=== PATIENT | male | born 1955 | race Caucasian/White ===

== ENCOUNTER 2017-01-01 10:42 | Emergency (ER) | payer BC ==
[~2017-01-01] VITALS: Ht 172.7 cm; Wt 76.6 kg
[~2017-01-01 10:42] MED LIST: ALBU1AER9 INH; ALLO300T2 PO; ATOR10TA88 PO; CLL250 PO; ESOM40GR PO; FEXO1TAB45 PO; FLUT50SP14 NAE; LISI-729 PO; MAGNESIUM SALICYLATE PO; MULTTAB58 PO; RAPAMUNE PO; TRAZ1TAB16 PO
[2017-01-01 10:53] VITALS: Ht 172.7 cm; Wt 76.6 kg
[2017-01-01 12:02] VITALS: TEMP 37.3
[2017-01-01 12:05] LABS: BASO % 0.1 %; BASO ABS # 0.01 K/uL (0-0.2); COMPLETE YES; EOS % 0.1 %; HEMATOCRIT 42.8 % (42-52); IG% 0.3 %; LYMPH % 5.8 %; LYMPH ABS # 1.02 K/uL (1.2-3.4); MEAN CELL VOLUME 81.8 fL (80-100); MEAN CORPUSCULAR HEMOGLOBIN 28.5 pg (25-34); MEAN CORPUSCULAR HGB CONC 34.8 g/dl (32-36); MEAN PLATELET VOLUME 9.6 fL (7.4-10.4); MONO % 2.2 %; NEUT % 91.5 %; PLATELET COUNT 270 K/uL (130-400); RED BLOOD COUNT 5.23 M/uL (4.7-6.1); WHITE BLOOD COUNT 17.67 K/uL (4.8-10.8)
[2017-01-01] MEDS ORDERED: MoRPHine SULFATE 4 MG/ML 1 ML CARP\\VIAL IV STA ×2 (12:09→15:33)
[2017-01-01] MEDS ORDERED: PIPERACILLIN/TAZOBACTAM 4.5 GM/100ML D5W IV STA ×2 (12:09→19:13)
[2017-01-01] MEDS ORDERED: ONDANSETRON INJ 2 MG/ML 2 ML VIAL IV STA (12:09)
[2017-01-01 12:27] LABS: ALB/GLOB RATIO 0.9 (0.9-2); BUN/CREATININE RATIO 18.8 (10-20); CALCIUM 9.6 mg/dl (8.5-10.1); CREATININE 1.9 mg/dl (0.60-1.40); POTASSIUM 3.6 mmol/L (3.5-5.1)
[2017-01-01] MEDS ORDERED: [UNRECOGNIZED DRUG - CODE] PO (12:50)
[2017-01-01] MEDS ORDERED: ALBU18002 INH (12:50)
[2017-01-01] MEDS ORDERED: SIRO1TAB PO (12:50)
[2017-01-01] MEDS ORDERED: MYCO500T4 PO (12:50)
[2017-01-01] MEDS ORDERED: FLUT0.15 NAE (12:50)
[2017-01-01] MEDS ORDERED: NXM/40 PO (12:50)
[2017-01-01] MEDS ORDERED: SODIUM CHLORIDE 0.9% 1000ML 1,000 ML IV STA (12:59)
--- NOTE | 2017-01-01 14:37 | DIAGNOSTIC IMAGING REPORT ---
Right upper quadrant ultrasound GALLBLADDER-ABD LIMITED CLINICAL HISTORY: eval for biliary obstruction pain. Nausea. TECHNIQUE: Ultrasound COMPARISON STUDY: 02/02/2016 FINDINGS: Prior cholecystectomy. Liver is uniform. Common bile duct 4 mm. Pancreas is unremarkable within limitations of overlying bowel content. Right kidney is negative for hydronephrosis. IMPRESSION: Negative study status post cholecystectomy. HISTORY: Of prior liver transplant. Electronically signed by: Adolfo Galvez M.D. 01/01/2017 2:36 PM Dictated Date/Time: 01/01/2017 2:33 PM
[2017-01-01] MEDS ORDERED: ONDANSETRON INJ 2 MG/ML 2 ML VIAL ONE (15:47)
[2017-01-01 16:07] LABS: URINE APPEARANCE CLEAR (CLEAR); URINE COLOR DK YELLOW; URINE NITRITE NEG (NEG); URINE SPECIFIC GRAVITY 1.021 (1.000-1.030); UROBILINOGEN NEG (NEG); ZZUR CULT IF INDIC CLEAN CATCH NO
[2017-01-01 16:10] LABS: MANUAL MICROSCOPIC REQUIRED? NO; REVIEW REQ? NO
[2017-01-01 16:11] LABS: URINE BILIRUBIN NEG (NEG)
[2017-01-01 19:02] VITALS: BP 139/83; PULSE 100; O2SAT 95
--- NOTE | 2017-01-01 19:25 | EMERGENCY ROOM VISIT NOTE ---
History Report prepared by Blake: Paul Cota Under the Supervision of: Dr. Jhon Wilkes M.D. First contact with patient: 12:02 Chief Complaint: ABDOMINAL PAIN Stated Complaint: VOMITING, STOMACH PAIN Nursing Triage Summary: pt reports abd pain vomiting has hx of liver transplant believes he has blocked bile duct. in [facility] History of Present Illness The patient is a 61 year old male with a history of liver transplant in 2004 who presents to the Emergency Room with complaints of persistent abdominal pain that started earlier today. He states that he had a liver transplant due to hepatitis C, which has been resolved. The patient says that his donor site bile duct is smaller than his own, and because of this, he occasionally gets biliary obstruction where he spikes a fever, gets nauseous, and vomits. He also gets aching right upper quadrant abdominal pain. He says that today, he is having the classic symptoms, and in the past, has been transferred to [facility] for a biliary stent procedure. The patient adds that his color is not changing. He denies any diarrhea, but he has not had much of a bowel movement today. The patient says that he has not urinated much today, but his urine has been of normal color. Source of History: patient Onset: Earlier today Position: abdomen (RUQ) Quality: ache Timing: other (persistent) Associated Symptoms: + fevers, + nausea, + vomiting, No diarrhea Note: Associated symptoms: Decreased urinary frequency today. Denies change in color. Review of Systems See HPI for pertinent positives & negatives. A total of 10 systems reviewed and were otherwise negative. Past Medical & Surgical Medical Problems: (1) Bronchitis (2) Diabetes (3) HTN (hypertension) (4) Kidney disease (5) PNA (pneumonia) Surgical Problems: (1) Liver replaced by transplant Family History Cancer Diabetes mellitus Heart disease Hypertension Lung disease Social History Smoking Status: Never Smoker Smokeless Tobacco Use: No Alcohol Use: occasionally Marital Status: Housing Status: lives with family Current/Historical Medications Scheduled Allopurinol (Zyloprim), 300 MG PO DAILY Atorvastatin (Lipitor), 10 MG PO DAILY Esomeprazole Magnesium (Nexium), 40 MG PO BID Fluticasone Propionate (Nasal) (Flonase Allergy Relief), 2 SPRAYS GILMA DAILY Lisinopril (Zestril), 5 MG PO DAILY Magnesium Salicylate (Cvs Backache Relief), 500 MG PO DAILY Multiple Vitamin (Multivitamin), 1 TAB PO DAILY Mycophenolate Mofetil (Cellcept), 500 MG PO BID Sirolimus (Rapamune), 1 MG PO DAILY Trazodone Hcl (Desyrel), 50 MG PO HS PRN Scheduled PRN Albuterol Sulfate (Proair Respiclick), 2 PUFFS INH Q4 PRN for SOB/Wheezing Allergies Coded Allergies: Diphenhydramine (Verified Adverse Reaction, Intermediate, restless, ) Benzyl Alcohol (Verified Adverse Reaction, Unknown, ANXIETY, 06/30/15) Prochlorperazine (Verified Adverse Reaction, Unknown, ANXIETY, 06/30/15) Saccharin (Verified Adverse Reaction, Unknown, ANXIETY, 06/30/15) Physical Exam Vital Signs Date Time Temp Pulse Resp B/P (MAP) Pulse Ox O2 Delivery O2 Flow Rate FiO2 01/01/17 19:02 100 18 139/83 95 Room Air 01/01/17 17:10 122/71 01/01/17 15:01 115 20 122/82 93 Room Air 01/01/17 12:42 109 25 01/01/17 12:14 128 01/01/17 12:12 125 18 01/01/17 12:02 37.3 122 140/90 93 Room Air 01/01/17 12:00 140/90 01/01/17 10:53 38.1 133 24 141/105 94 Room Air Physical Exam Constitutional: Vital signs reviewed. Eyes: Sclera are icteric. Pupils are equal, round and reactive to light. ENT: Pharynx is clear without erythema or exudate. Mucous membranes are moist. Neck supple without meningeal signs. Respiratory: Clear to auscultation bilaterally. Breath sounds are equal bilaterally. Cardiovascular: Regular rate and rhythm. No rubs or gallops. GI: Right upper quadrant tenderness. No guarding or Medina's sign. Bowel sounds are present. Musculoskeletal: No peripheral edema. No lower extremity tenderness. Integumentary: No cyanosis. Neurological: The patient is awake and alert. No focal deficits. Psychiatric: Normal affect. Medical Decision & Procedures ER Provider Diagnostic Interpretation: US results as stated below per my review and radiologist interpretation. Right upper quadrant ultrasound GALLBLADDER-ABD LIMITED CLINICAL HISTORY: eval for biliary obstruction pain. Nausea. TECHNIQUE: Ultrasound COMPARISON STUDY: 02/02/2016 FINDINGS: Prior cholecystectomy. Liver is uniform. Common bile duct 4 mm. Pancreas is unremarkable within limitations of overlying bowel content. Right kidney is negative for hydronephrosis. IMPRESSION: Negative study status post cholecystectomy. HISTORY: Of prior liver transplant. Electronically signed by: Adolfo Galvez M.D. 01/01/2017 2:36 PM Dictated Date/Time: 01/01/2017 2:33 PM Laboratory Results 01/01/17 11:20 Red Blood Count 5.23, Mean Corpuscular Volume 81.8, Mean Corpuscular Hemoglobin 28.5, Mean Corpuscular Hemoglobin Concent 34.8, Mean Platelet Volume 9.6, Neutrophils (%) (Auto) 91.5, Lymphocytes (%) (Auto) 5.8, Monocytes (%) (Auto) 2.2, Eosinophils (%) (Auto) 0.1, Basophils (%) (Auto) 0.1, Neutrophils # (Auto) 16.18, Lymphocytes # (Auto) 1.02, Monocytes # (Auto) 0.39, Eosinophils # (Auto) 0.01, Basophils # (Auto) 0.01 01/01/17 11:20 Test 01/01/17 11:20 01/01/17 15:30 White Blood Count 17.67 K/uL (4.8-10.8) Red Blood Count 5.23 M/uL (4.7-6.1) Hemoglobin 14.9 g/dL (14.0-18.0) Hematocrit 42.8 % (42-52) Mean Corpuscular Volume 81.8 fL (80-100) Mean Corpuscular Hemoglobin 28.5 pg (25-34) Mean Corpuscular Hemoglobin Concent 34.8 g/dl (32-36) Platelet Count 270 K/uL (130-400) Mean Platelet Volume 9.6 fL (7.4-10.4) Neutrophils (%) (Auto) 91.5 % Lymphocytes (%) (Auto) 5.8 % Monocytes (%) (Auto) 2.2 % Eosinophils (%) (Auto) 0.1 % Basophils (%) (Auto) 0.1 % Neutrophils # (Auto) 16.18 K/uL (1.4-6.5) Lymphocytes # (Auto) 1.02 K/uL (1.2-3.4) Monocytes # (Auto) 0.39 K/uL (0.11-0.59) Eosinophils # (Auto) 0.01 K/uL (0-0.5) Basophils # (Auto) 0.01 K/uL (0-0.2) RDW Standard Deviation 44.2 fL (36.4-46.3) RDW Coefficient of Variation 14.8 % (11.5-14.5) Immature Granulocyte % (Auto) 0.3 % Immature Granulocyte # (Auto) 0.06 K/uL (0.00-0.02) Anion Gap 11.0 mmol/L (3-11) Est Creatinine Clear Calc Drug Dose 39.0 ml/min Estimated GFR () 42.8 Estimated GFR (Non- 37.0 BUN/Creatinine Ratio 18.8 (10-20) Calcium Level 9.6 mg/dl (8.5-10.1) Total Bilirubin 2.1 mg/dl (0.2-1) Aspartate Amino Transf (AST/SGOT) 1228 U/L (15-37) Alanine Aminotransferase (ALT/SGPT) 519 U/L (12-78) Alkaline Phosphatase 503 U/L (45-117) Total Protein 7.8 gm/dl (6.4-8.2) Albumin 3.6 gm/dl (3.4-5.0) Globulin 4.2 gm/dl (2.5-4.0) Albumin/Globulin Ratio 0.9 (0.9-2) Lipase 168 U/L (73-393) Urine Color DK YELLOW Urine Appearance CLEAR (CLEAR) Urine pH 5.0 (4.5-7.5) Urine Specific [place] 1.021 (1.000-1.030) Urine Protein 3+ (NEG) Urine Glucose (UA) NEG (NEG) Urine Ketones NEG (NEG) Urine Occult Blood 2+ (NEG) Urine Nitrite NEG (NEG) Urine Bilirubin NEG (NEG) Urine Urobilinogen NEG (NEG) Urine Leukocyte Esterase NEG (NEG) Urine WBC (Auto) 1-5 /hpf (0-5) Urine RBC (Auto) 5-10 /hpf (0-4) Urine Hyaline Casts (Auto) 1-5 /lpf (0-5) Urine Epithelial Cells (Auto) 10-20 /lpf (0-5) Urine Bacteria (Auto) NEG (NEG) Laboratory results as reviewed by me. Medications Administered Medications (Trade) Dose Ordered Sig/Anders Route Start Time Stop Time Status Last Admin Dose Admin Piperacillin Sod/ Tazobactam Sod (Zosyn Iv) 4.5 gm NOW STAT IV 01/01/17 12:09 01/01/17 12:12 DC 01/01/17 12:34 4.5 GM Ondansetron HCl (Zofran Inj) 4 mg NOW STAT IV 01/01/17 12:09 01/01/17 12:12 DC 01/01/17 12:31 4 MG Morphine Sulfate (MoRPHine SULFATE INJ) 4 mg NOW STAT IV 01/01/17 12:09 01/01/17 12:12 DC 01/01/17 12:32 4 MG Sodium Chloride 1,000 ml @ 999 mls/hr Q1H1M STAT IV 01/01/17 12:59 01/01/17 13:59 DC 01/01/17 13:27 999 MLS/HR Morphine Sulfate (MoRPHine SULFATE INJ) 4 mg NOW STAT IV 01/01/17 15:33 01/01/17 15:34 DC 01/01/17 15:37 4 MG Ondansetron HCl (Zofran Inj) 4 mg STK-MED ONCE .ROUTE 01/01/17 15:47 01/01/17 15:48 DC 01/01/17 15:50 4 MG ED Course 1204: The patient was evaluated in room B10. A complete history and physical exam was performed. 1209: Ordered Morphine Sulfate Inj 4 mg IV, Zofran Inj 4 mg IV, Zosyn IV 4.5 gm IV. 1219: I reevaluated and updated the patient. 1240: I reevaluated the patient and he is resting. The patient verbally expressed understanding and agreement of the treatment plan. The patient will be transferred to [facility]. 1257: I discussed the patient with Dr. Delvalle - hospitalist at [facility] - she has accepted the patient for transfer. The transfer center says that it will be up to an hour before getting a bed, so I will go ahead and do some imaging. 1259: Ordered NSS 1000 ml @ 999 mls/hr IV. 1313: I reevaluated and updated the patient. 1510: I reevaluated the patent and discussed the test results with him. He says he is feeling better. 1517: I discussed the patient with Lillie Velasquez - [facility] - she says it probably would be best to still transfer the patient due to his transplant and problems with biliary obstruction. 1533: Ordered Morphine Sulfate Inj 4 mg IV. 1608: There is still no bed available. The secretary administrative assistant will call again to see if we can get a bed for the patient. 1613: A bed has now become available. Medical Decision This is a 61-year-old male who presents with abdominal pain, fever and vomiting. Differential diagnosis includes cholangitis, choledocholithiasis, biliary obstruction, rejection, sepsis. I did perform a limited focused review of portions of the patient's old chart on the electronic medical record. The patient has had no recent pertinent visits to this hospital. Blood Pressure Screening: Patient was found to have an elevated blood pressure and was referred to their primary doctor for recheck and further treatment. Medication Reconciliation: I attest that I have personally reviewed the patient' s current medication list. I did evaluate the patient as noted above. The patient is presenting with symptoms he says is consistent with biliary obstruction. He does have scleral icterus. He is febrile and vomiting. He states this is exactly what happens when he develops biliary obstruction and needs a stent placed at [facility]. He does have a history of liver transplant and is on immunosuppressants. IV access was established. I did order and personally review the patient's urinalysis as described above. I did order and review the patient's blood work as noted in the electronic medical record. His white blood cell count is significant elevated. LFTs are abnormal as well. I did discuss the test results with the patient. I did treat him with IV morphine and Zofran. He was given normal saline IV and Zosyn IV after cultures were drawn. After discussion with the patient I did arrange for transfer to [facility]. I did talk to the hospitalist who accepted the transfer. There was some delay in getting a bed and so I did order an ultrasound of the right upper quadrant. I did review the images myself as well as the radiology report as described above. There is no evidence of biliary obstruction on ultrasound. I did reassess the patient. He is feeling better. There is still some delay in finding a bed and so I did discuss the case with the gastroenterology service here. They still recommended that he be transferred given his history of liver transplantation and should he need biliary stenting. Eventually the patient was able to get a bed and ambulance transfer was arranged. Because he was here for a prolonged period time I did give him another dose of Zosyn IV. He was also given additional morphine and Zofran. He was transferred in stable condition. Consults Time Called: 1250 Consulting Physician: Dr. Adelia hyman at [facility] Returned Call: [phone] I discussed the patient with Dr. Adelia hyman at [facility] - she has accepted the patient for transfer. The transfer center says that it will be up to an hour before getting a bed, so I will go ahead and do some imaging. Additional Consults: Time Called: 1510 Consulted Physician: [facility] Returned Call: [phone] Additional Comments: I discussed the patient with [facility] - she says it probably would be best to still transfer the patient due to his transplant and problems with biliary obstruction. Impression Primary Impression: Right upper quadrant abdominal pain Additional Impressions: History of liver transplant Fever Abnormal LFTs Scribe Attestation The scribe's documentation has been prepared under my direct and personally reviewed by me in its entirety. I confirm that the note above accurately reflects all work, treatment, procedures, and medical decision making performed by me. Departure Information Dispostion Transfer Acute Care Facility (to [facility]) Referrals Terrie Mckinney M.D. (PCP) Patient Instructions My [facility] Problem Qualifiers Additional Impressions: Fever Fever type: unspecified Qualified Codes: R50.9 - Fever, unspecified
== END 2017-01-01 19:15 | disposition short-term general hospital (02) ==
LOC: C.EDB 10:44
DX: R10.11 Right upper quadrant pain (principal); Z94.4 Liver transplant status; R50.9 Fever, unspecified; R94.5 Abnormal results of liver function studies; E11.9 Type 2 diabetes mellitus without complications; I10 Essential (primary) hypertension; N28.9 Disorder of kidney and ureter, unspecified; R17 Unspecified jaundice; Z83.3 Family history of diabetes mellitus; Z82.49 Family history of ischemic heart disease and other diseases of the circulatory system

== ENCOUNTER → 2017-08-07 | Outpatient (CLI) | payer BC ==
[~2017-08-07] MED LIST changes: +ALBU18002 INH; -ALBU1AER9 INH; +ATOR10TA82 PO; -ATOR10TA88 PO; -CLL250 PO; -ESOM40GR PO; -FEXO1TAB45 PO; +FLUT0.15 NAE; -FLUT50SP14 NAE; -MAGNESIUM SALICYLATE PO; +MYCO500T4 PO; +NXM/40 PO; -RAPAMUNE PO; +SIRO1TAB PO; +TRAZ-119 PO; -TRAZ1TAB16 PO; +[UNRECOGNIZED DRUG - CODE] PO
== END | disposition home or self-care (01) ==
LOC: C.RDSM 14:57
PROVIDERS: ATTEND Family Medicine Sports Medicine
DX: M25.572 Pain in left ankle and joints of left foot (principal)

== ENCOUNTER → 2018-01-16 | Outpatient (CLI) | payer BC ==
[~2018-01-16] MED LIST changes: +ATOR-24 PO; -ATOR10TA82 PO; +DESI25TA PO; +FEXO1TAB49 PO; -FLUT0.15 NAE; -LISI-729 PO; +LISI5TAB PO; +MAGN500C PO; +MOME6000 NAE; -MULTTAB58 PO; +PSEU60TA80 PO; -TRAZ-119 PO; +TRAZ1TAB96 PO; -[UNRECOGNIZED DRUG - CODE] PO
--- NOTE | 2018-01-16 09:04 | DIAGNOSTIC IMAGING REPORT ---
CHEST 2 VIEWS ROUTINE HISTORY: 62 years-old Male pat preoperative exam. No acute chest complaints COMPARISON: Chest radiograph 01/14/2013 TECHNIQUE: PA and lateral views of the chest FINDINGS: Cardiomediastinal and hilar silhouettes are within normal limits. Surgical clips project about the left hemidiaphragm with surgical coils noted about the midline retrocardiac region. Neurostimulator leads extending superiorly about the right paraspinal distribution extending outside the [id number]. No pneumothorax, pleural effusion, focal airspace consolidation or overt pulmonary edema. Degenerative changes of the shoulders and spine. Surgical clips also project of the left axillary distribution. IMPRESSION: No acute process. The above report was generated using voice recognition software. It may contain grammatical, syntax or spelling errors. Electronically signed by: Kristian Erickson M.D. 01/16/2018 9:02 AM Dictated Date/Time: 01/16/2018 9:01 AM
[2018-01-16 09:05] LABS: PTT PATIENT 25.2 SECONDS (21.0-31.0)
[2018-01-16 09:06] LABS: BLOOD UREA NITROGEN 43 mg/dl (7-18); CALCIUM 9.2 mg/dl (8.5-10.1); CARBON DIOXIDE 28 mmol/L (21-32); CREATININE 2.02 mg/dl (0.60-1.40); GLUCOSE 238 mg/dl (70-99); POTASSIUM 4.3 mmol/L (3.5-5.1); SODIUM 138 mmol/L (136-145)
[2018-01-16 09:09] LABS: BASO % 0.1 %; BASO ABS # 0.01 K/uL (0-0.2); EOS % 3.5 %; EOS ABS # 0.25 K/uL (0-0.5); HEMATOCRIT 37.8 % (42-52); HEMOGLOBIN 12.3 g/dL (14.0-18.0); IG# 0.01 K/uL (0.00-0.02); LYMPH % 19.9 %; LYMPH ABS # 1.41 K/uL (1.2-3.4); MEAN CORPUSCULAR HEMOGLOBIN 27.3 pg (25-34); MEAN CORPUSCULAR HGB CONC 32.5 g/dl (32-36); MEAN PLATELET VOLUME 10.1 fL (7.4-10.4); MONO % 4.9 %; MONO ABS # 0.35 K/uL (0.11-0.59); NEUT % 71.5 %; NEUT ABS # 5.06 K/uL (1.4-6.5); PLATELET COUNT 237 K/uL (130-400); RED CELL DISTRIBUTION WIDTH CV 14.9 % (11.5-14.5); RED CELL DISTRIBUTION WIDTH SD 45.2 fL (36.4-46.3); WHITE BLOOD COUNT 7.09 K/uL (4.8-10.8)
== END | disposition home or self-care (01) ==
LOC: C.CPL 07:56
PROVIDERS: ATTEND Orthopaedic Surgery Orthopaedic Surgery of the Spine
DX: Z01.818 Encounter for other preprocedural examination (principal)

== ENCOUNTER 2019-05-07 05:42 | Inpatient (IN) ==
[2019-05-07] MEDS ORDERED: ASPIRIN CHEW 324 MG PO STA (05:57)
[2019-05-07] MEDS: NITROGLYCERIN SL 0.4 MG/TAB TAB SL PRN ×2 (06:07→06:21)
[2019-05-07] MEDS ORDERED: ONDANSETRON INJ 2 MG/ML 2 ML VIAL ONE (06:16)
--- NOTE | 2019-05-07 06:16 | XRay Report ---
XR chest 1V portable CLINICAL HISTORY: Chest Pain dyspnea COMPARISON STUDY: 01/14/2013 FINDINGS: Mild cardiomegaly. Prominent pulmonary vasculature. Diaphragms are smooth. There are no foc al consolidative infiltrates. IMPRESSION: Findings of early and/or developing pulmonary edema versus diffuse bilateral parenchymal infiltrative change. The above report was generated using voice recognition software. It may contain grammatical, syntax or spelling errors. Electronically signed by: Adolfo Galvez M.D. 05/07/2019 6:14 AM
[2019-05-07 06:28] LABS: Basophils # (auto) 0.01 K/uL (0-0.2); Basophils % (auto) 0.1 %; Eosinophils # (auto) 0.18 K/uL (0-0.5); Eosinophils % (auto) 1.3 %; Hematocrit (blood only) 39.2 % (42-52); Hemoglobin 13.1 g/dL (14.0-18.0); Immature Granulocytes # (auto) 0.03 K/uL (0.00-0.02); Immature Granulocytes % (auto) 0.2 %; Lymphocytes # (auto) 1.95 K/uL (1.2-3.4); Lymphocytes % (auto) 14.3 %; Mean Corpuscular Hemoglobin 27.5 pg (25-34); Mean Corpuscular Hgb Conc 33.4 g/dL (32-36); Mean Corpuscular Volume 82.4 fL (80-100); Mean Platelet Volume 9.4 fL (7.4-10.4); Monocytes # (auto) 1.05 K/uL (0.11-0.59); Monocytes % (auto) 7.7 %; Neutrophils # (auto) 10.42 K/uL (1.4-6.5); Neutrophils % (auto) 76.4 %; Platelet Count 342 K/uL (130-400); RDW Coefficient of Variation 14.6 % (11.5-14.5); RDW Standard Deviation 43.8 fL (36.4-46.3); Red Blood Count 4.76 M/uL (4.7-6.1); White Blood Count 13.64 K/uL (4.8-10.8)
[2019-05-07 06:34] LABS: Albumin Level 3.2 gm/dl (3.4-5.0); BUN Creatinine Ratio 15.3 (10-20); Creatinine Clr Calc Pharmacy 32.8 ml/min; Est GFR (African American) 35.7; Est GFR (Non-African American) 30.8; Potassium 3.2 mmol/L (3.5-5.1)
[2019-05-07 06:43] LABS: Albumin Globulin Ratio 0.7 (0.9-2); Bilirubin,Total 0.6 mg/dl (0.2-1); Globulin 4.4 gm/dl (2.5-4.0); Total Protein 7.6 gm/dl (6.4-8.2); Troponin I 0.088 ng/ml (0-0.045)
[2019-05-07] MEDS ORDERED: MoRPHine SULFATE 2 MG/ML CARP IV STA ×2 (06:44→06:59)
[2019-05-07] MEDS ORDERED: HEPARIN SODIUM/DEXTROSE 25,000 UNITS/500 ML BAG IV SCH (07:00)
[2019-05-07] MEDS ORDERED: HEPARIN SOD 5,000 UNIT/0.5 ML VIAL ONE (07:04)
[2019-05-07 07:11] LABS: Prothrombin Time 10.2 Seconds (9.0-12.0)
--- NOTE | 2019-05-07 07:22 | Emergency Department Note ---
Entered by Gertrudis Martinez acting as a scribe for History of Present Illness General Chief complaint: Chest Pain Stated complaint: CHEST PAIN,SHORTNESS OF BREATH Time Seen by Provider: 05/07/19 05:45 Source: patient History of Present Illness Onset (ago): hour(s) (2.5) Location: chest (substernal) Radiation: non-radiation Pain Consistency: + other (persistent ) Current Pain Intensity: 7 Quality: + other ("pulsing") Associated symptoms: + shortness of breath; no diaphoresis and no nausea/vomitin g The patient is a 64 year old male who presents to the Emergency Room with comp laints of persistent substernal chest pain that began at 0330, approximately 2.5 hours prior to arrival. He states that he woke up from this pain. The patient describes his pain as a "pulsing" and rates it at a 7/10. The patient denies radiation of his pain. He reports shortness of breath with this "pulsing". The patient denies nausea, vomiting, and sweating. The patient states that he has a history of two liver transplants, hypertension, and diabetes. The patient states that his most recent liver transplant was in 2004. He states that he is set to have an aortic ultrasound tomorrow. Home Medications Home Medications Medication Instructions Recorded Confirmed Type allopurinol 300 mg PO QPM #0 tab 02/27/12 05/07/19 History trazodone 100 mg PO HS #0 tab 02/27/12 05/07/19 History albuterol sulfate 2 puff INHALATION Q4 PRN #0 01/01/17 05/07/19 History sirolimus 1 mg PO QPM #0 01/01/17 05/07/19 History atorvastatin 40 mg PO QPM #0 tab 01/09/18 05/07/19 History desipramine 25 mg PO QPM #0 01/09/18 05/07/19 History esomeprazole magnesium [Nexium] 40 mg PO BID #0 cap 01/09/18 05/07/19 History fexofenadine 180 mg PO DAILY PRN #0 tab 01/09/18 05/07/19 History mometasone 1 spray INTRANASAL DAILY PRN #0 01/09/18 05/07/19 History mycophenolate mofetil 500 mg PO QPM #0 tab 01/09/18 05/07/19 History pseudoephedrine-guaifenesin 1 tab PO Q12H PRN #0 tab 01/09/18 05/07/19 History magnesium salicylate 580 mg PO QPM 05/07/19 05/07/19 History Allergies Allergy/AdvReac Type Severity Reaction Status Date / Time ketamine Allergy Intermediate hallucinati Verified 05/07/19 06:04 ons midazolam Allergy Intermediate headaches/ Verified 05/07/19 06:04 "hangover" diphenhydramine AdvReac Intermediate restless Verified 05/07/19 06:04 prochlorperazine AdvReac Intermediate ANXIETY Verified 05/07/19 06:04 Past Med/Surg History Medical History Diabetes (Chronic) HTN (hypertension) (Chronic) Kidney disease (Chronic) Arm pain HAS DORSAL [employer]ULATOR FOR PAIN CONTROL 2007 Arthritis Femur fracture, left REPAIRED GERD (gastroesophageal reflux disease) Gout Hepatitis C CLEARED SINCE 2004 Hyperlipemia Surgical History History of liver transplant 1993 [facility], 2005 [facility] H/O rhinoplasty History of biliary duct stent placement BILE DUCT STENTS INSERTED MULTIPLE TIMES History of bowel resection History of nasal septoplasty X 2 History of open reduction and internal fixation (ORIF) procedure left femur Hx of tonsillectomy Hx of tooth extraction Family History Other No pertinent family history in first degree relatives Social History Preferred Language: Sinhala Communication Ability: Effective Beliefs That Will Affect Care: None Current Living Situation: Spouse Feels Safe at Home: Yes Smoking Status: Never smoker Second Hand Exposure: No ; Hx Alcohol Use: Yes Hx Substance Use: No Review of Systems See HPI for pertinent positives & negatives. and A total of 10 systems reviewed and were otherwise negative Physical Exam Vital Signs Vital Signs - 24 hr 05/07/19 05:43 05/07/19 05:56 05/07/19 06:01 Temperature 36.3 C L Temperature Source Oral Sepsis Recent Fever Within 48 Hours No Sepsis New/Unexplained Change in Mental Status No Sepsis Action Taken by Nursing No Action Required Pulse Rate 104 H Pulse Rate [Bilateral Apical] Respiratory Rate 18 Respiratory Effort / Characteristics Non-Labored Spontaneous Non-Labored Spontaneous Respiratory Depth Normal Normal Respiratory Pattern Regular Blood Pressure 160/111 H Blood Pressure [Right Arm] Blood Pressure Mean 127 Blood Pressure Mean [Right Arm] Blood Pressure Position Lying Pulse Oximetry 95 94 Oxygen Delivery Method Room Air Nasal Cannula Oxygen Flow Rate 2 2 05/07/19 06:03 05/07/19 06:08 05/07/19 06:18 Temperature Temperature Source Sepsis Recent Fever Within 48 Hours Sepsis New/Unexplained Change in Mental Status Sepsis Action Taken by Nursing Pulse Rate Pulse Rate [Bilateral Apical] 99 H 92 H Respiratory Rate 20 20 Respiratory Effort / Characteristics Non-Labored Respiratory Depth Normal Respiratory Pattern Blood Pressure Blood Pressure [Right Arm] 178/86 H 141/83 H Blood Pressure Mean Blood Pressure Mean [Right Arm] 116 102 Blood Pressure Position Pulse Oximetry 94 94 91 Oxygen Delivery Method Nasal Cannula Nasal Cannula Nasal Cannula Oxygen Flow Rate 2 2 2 05/07/19 06:33 05/07/19 06:53 Temperature Temperature Source Sepsis Recent Fever Within 48 Hours Sepsis New/Unexplained Change in Mental Status Sepsis Action Taken by Nursing Pulse Rate Pulse Rate [Bilateral Apical] 86 95 H Respiratory Rate 20 20 Respiratory Effort / Characteristics Respiratory Depth Respiratory Pattern Blood Pressure Blood Pressure [Right Arm] 132/65 141/76 H Blood Pressure Mean Blood Pressure Mean [Right Arm] 87 97 Blood Pressure Position Pulse Oximetry 93 94 Oxygen Delivery Method Nasal Cannula Oxygen Flow Rate 3 HEENT: Head - normocephalic and atraumatic Pupils are equal, round, and reactive to light. Extraocular eye muscles are intact, and sclera are anicteric. Nose - moist nasal mucosa without discharge. Mouth - moist buccal mucosa. Oropharynx is nonerythematous and there is no tonsillar exudate or edema noted. Neck: Supple; no cervical lymphadenopathy. Heart: Regular rate and rhythm. There is a normal S1 and S2 with no murmurs, clicks, or gallops appreciated. Lungs: Clear to auscultation bilaterally with no wheezes, rales, or rhonchi. Abdomen: Soft, completely nontender, nondistended, with good bowel sounds. There are no palpable pulsatile masses or hepatosplenomegaly. There is no guarding, rigidity, or rebound noted. Extremities: No evidence of cyanosis, clubbing, or edema. There are easily palpable peripheral pulses. Skin: Skin is pale. Warm and dry with good turgor and no rashes. Course 0547: Past medical records reviewed. The patient was evaluated in room B10. A complete history and physical exam was performed. A twelve-lead EKG was obtaine d. An IV lock was initiated and labs were drawn as above. The patient was observed on the cardiac nurse and pulse oximeter. He was a sinus tachycardia with multiple PVCs initially. 0556: Ordered Nitrostat 0.4 mg SL. 0558: Ordered Aspirin 324 mg PO. 0612: upon reevaluation, the patient states that in the beginning of April he did a 265 mile bicycle ride and the next day had shortness of breath and cough. The patient states that he was admitted to a hospital in [place], [place] at this time for an aspiration pneumonitis secondary to GERD. 0617: Ordered Zofran 4 mg IV. 0631: Upon reevaluation, the patient had 1 nitro and had no relief. He became pale, diaphoretic, and vomited. The patient was given 4 mg Zofran. He states that he is becoming increasingly short of breath. The patient was given a subsequent nitro 0636: The patient had a follow up appointment with his PCP following the aspiration pneumonitis and a chest x-ray was performed. This x-ray was normal and showed everything had resolved. 0644: Upon reevaluation after an additional Nitro, the patient's pain is down to a 5. He will be given Morphine. 0645: Ordered Morphine Sulfate 2 mg IV. 0649: The patient will receive a Heparin bolus and drip. I will talk to Dory about further evaluation for the patient. The patient had significant relief of his discomfort with the IV morphine. He will be given a second dose of IV morphine. 0658: I discussed the case with [facility]. [facility] Hospitalist who accepts the patient for further evaluation. Administered Medications Nitroglycerin (Nitrostat) 0.4 mg SL UD PRN PRN Reason: Chest Pain Stop: 06/06/19 05:56 Last Admin: 05/07/19 06:21 Dose: 0.4 mg Documented by: [id number] Admin: 05/07/19 06:07 Dose: 0.4 mg Documented by: [id number] Discontinued Medications Aspirin (Aspirin) 324 mg PO NOW STA Stop: 05/07/19 05:58 Last Admin: 05/07/19 06:07 Dose: 324 mg Documented by: [id number] Morphine Sulfate (Morphine Sulfate) 2 mg IV NOW STA Stop: 05/07/19 06:45 Last Admin: 05/07/19 06:47 Dose: 2 mg Documented by: [id number] Ondansetron HCl (Zofran) Confirm Administered Dose 4 mg .ROUTE .STK-MED ONE Stop: 05/07/19 06:17 Last Admin: 05/07/19 06:17 Dose: 4 mg Documented by: [id number] Medical Decision Making Differential Diagnosis Differential diagnoses include GERD, STEMI, ACS, aortic dissection, PE, pneumonia, aspiration, and others were considered. Medical Records Attestation: I reviewed the patient's medical records. Home Medications Current Medication List: was personally reviewed by me Laboratory Data Attestation: I reviewed the patient's lab results. Result diagrams: 05/07/19 05:58 05/07/19 05:58 Lab Results 05/07/19 05/07/19 05/07/19 Range/Units 05:58 05:58 05:58 WBC 13.64 H (4.8-10.8) K/uL RBC 4.76 (4.7-6.1) M/uL Hgb 13.1 L (14.0-18.0) g/dL Hct 39.2 L (42-52) % MCV 82.4 (80-100) fL MCH 27.5 (25-34) pg MCHC 33.4 (32-36) g/dL RDW Std Deviation 43.8 (36.4-46.3) fL RDW Coeff of Vicky 14.6 H (11.5-14.5) % Plt Count 342 (130-400) K/uL MPV 9.4 (7.4-10.4) fL Immature Gran % (Auto) 0.2 % Neut % (Auto) 76.4 % Lymph % (Auto) 14.3 % [place] % (Auto) 7.7 % Eos % (Auto) 1.3 % Baso % (Auto) 0.1 % Immature Gran # (Auto) 0.03 H (0.00-0.02) K/uL Neut # (Auto) 10.42 H (1.4-6.5) K/uL Lymph # (Auto) 1.95 (1.2-3.4) K/uL [place] # (Auto) 1.05 H (0.11-0.59) K/uL Eos # (Auto) 0.18 (0-0.5) K/uL Baso # (Auto) 0.01 (0-0.2) K/uL PT (9.0-12.0) Seconds INR (0.9-1.1) Sodium 138 (136-145) mmol/L Potassium 3.2 L (3.5-5.1) mmol/L Chloride 103 (98-107) mmol/L Carbon Dioxide 26 (21-32) mmol/L Anion Gap 9.0 (3-11) BUN 33 H (7-18) mg/dl Creatinine 2.17 H (0.6-1.4) mg/dl Est Cr Clr Drug Dosing 32.8 ml/min Est GFR ( Amer) 35.7 Est GFR (Non-Af Amer) 30.8 BUN/Creatinine Ratio 15.3 (10-20) Glucose 185 H (70-99) mg/dl Calcium 9.0 (8.5-10.1) mg/dl Total Bilirubin 0.6 (0.2-1) mg/dl AST 26 (15-37) U/L ALT 25 (12-78) U/L Alkaline Phosphatase 157 H (45-117) U/L Troponin I 0.088 H* (0-0.045) ng/ml NT-Pro-B Natriuret Pep 9593 H Cancelled (0-900) pg/ml Total Protein 7.6 (6.4-8.2) gm/dl Albumin 3.2 L (3.4-5.0) gm/dl Globulin 4.4 H (2.5-4.0) gm/dl Albumin/Globulin Ratio 0.7 L (0.9-2) Lipase 140 (73-393) U/L 05/07/19 Range/Units 05:58 WBC (4.8-10.8) K/uL RBC (4.7-6.1) M/uL Hgb (14.0-18.0) g/dL Hct (42-52) % MCV (80-100) fL MCH (25-34) pg MCHC (32-36) g/dL RDW Std Deviation (36.4-46.3) fL RDW Coeff of Vicky (11.5-14.5) % Plt Count (130-400) K/uL MPV (7.4-10.4) fL Immature Gran % (Auto) % Neut % (Auto) % Lymph % (Auto) % [place] % (Auto) % Eos % (Auto) % Baso % (Auto) % Immature Gran # (Auto) (0.00-0.02) K/uL Neut # (Auto) (1.4-6.5) K/uL Lymph # (Auto) (1.2-3.4) K/uL [place] # (Auto) (0.11-0.59) K/uL Eos # (Auto) (0-0.5) K/uL Baso # (Auto) (0-0.2) K/uL PT 10.2 (9.0-12.0) Seconds INR 1.0 (0.9-1.1) Sodium (136-145) mmol/L Potassium (3.5-5.1) mmol/L Chloride (98-107) mmol/L Carbon Dioxide (21-32) mmol/L Anion Gap (3-11) BUN (7-18) mg/dl Creatinine (0.6-1.4) mg/dl Est Cr Clr Drug Dosing ml/min Est GFR ( Amer) Est GFR (Non-Af Amer) BUN/Creatinine Ratio (10-20) Glucose (70-99) mg/dl Calcium (8.5-10.1) mg/dl Total Bilirubin (0.2-1) mg/dl AST (15-37) U/L ALT (12-78) U/L Alkaline Phosphatase (45-117) U/L Troponin I (0-0.045) ng/ml NT-Pro-B Natriuret Pep (0-900) pg/ml Total Protein (6.4-8.2) gm/dl Albumin (3.4-5.0) gm/dl Globulin (2.5-4.0) gm/dl Albumin/Globulin Ratio (0.9-2) Lipase (73-393) U/L Imaging Data Attestation: I personally reviewed and interpreted this imaging study as follows: My Impression: CHEST X-RAY 1 VIEW: Cardiomegaly. Pulmonary vascular congestion. No pleural effusion. ECG Data Attestation: I personally reviewed and interpreted this ECG as follows: Indication: + chest pain Rate (beats per minute): 112 Rhythm: + sinus tachycardia ECG Intervals/blocks: + First degree AV block ECG ST segments: no ST elevation ECG Findings: + PVCs (frequent) and + Other (positive flattened T-waves) Blood Pressure Blood Pressure Findings: Elevated blood pressure Blood Pressure Disposition: further management by hospitalist MDM Narrative The patient is a 64 year old male who presents to the Emergency Room with complaints of persistent substernal chest pain that began at 0330, approximately 2.5 hours prior to arrival. The patient was hypertensive and tachycardic upon presentation. He received nitroglycerin which did decrease his pain initially. Patient had an episode of pallor and diaphoresis and then vomiting. He received IV Zofran. The patient was given IV morphine which took away the patient's pain. Chest x-ray shows evidence of pulmonary edema. Patient has a borderline creatinine of 2.1 which is baseline for him. We discussed the possibility of PE. Patient does not have significant risk factors for this but the admitting team could possibly do a VQ scan. Patient had an elevated troponin. He was treated with IV heparin. The patient is hemodynamically stable and comfortable at this time. Impression & Plan Non-ST elevation AK (NSTEMI), Pulmonary edema, Substernal chest pain Critical Care Time Critical Care Time: Yes Total Critical Care Time: 50 I have personally spent greater than 50 minutes of critical care time in the direct management of this patient. This includes bedside care, interpretation of diagnostic studies, and testing, discussion with consultants, patient, and family members, and other required patient management activities. This 50 minutes is in excess of all separately billable procedures. Discharge Plan Visit Data Chief Complaint: Chest Pain Stated Complaint: CHEST PAIN,SHORTNESS OF BREATH ED Provider: Stephanie Freeman Discharge Problem: Non-ST elevation [place] (NSTEMI), Pulmonary edema, Substernal chest pain Patient Disposition: Being Evaluated by Hospitalist Forms Stand Alone Forms: Call Back Authorization, My [facility] Prescriptions Prescriptions: No Action trazodone 50 mg Tablet 100 mg PO HS Qty: 0 RF: 0 allopurinol 300 mg Tablet 300 mg PO QPM Qty: 0 RF: 0 sirolimus 1 mg Tablet 1 mg PO QPM Qty: 0 RF: 0 albuterol sulfate 90 mcg/actuation Aerosol Powdr Breath Activated 2 puff INHALATION Q4 PRN (Reason: SOB) Qty: 0 RF: 0 atorvastatin 40 mg Tablet 40 mg PO QPM Qty: 0 RF: 0 desipramine 25 mg Tablet 25 mg PO QPM Qty: 0 RF: 0 fexofenadine 180 mg Tablet 180 mg PO DAILY PRN (Reason: Allergy Symptoms) Qty: 0 RF: 0 mycophenolate mofetil 500 mg Tablet 500 mg PO QPM Qty: 0 RF: 0 pseudoephedrine-guaifenesin 120-1,200 mg Tablet Extended Release 12 Hr 1 tab PO Q12H PRN (Reason: Allergy Symptoms) Qty: 0 RF: 0 esomeprazole magnesium [Nexium] 40 mg Capsule,Delayed Release(Dr/Ec) 40 mg PO BID Qty: 0 RF: 0 mometasone 50 mcg/actuation [place],Non-Aerosol 1 spray INTRANASAL DAILY PRN (Reason: Allergy Symptoms) Qty: 0 RF: 0 magnesium salicylate 580 (467) mg Tablet 580 mg PO QPM RF: 0 Referrals Referrals: Terrie Mckinney MD [Primary Care Provider] - Discharge Problem: Pulmonary edema Qualifiers: Chronicity: acute Qualified Code(s): J81.0 - Acute pulmonary edema The scribe's documentation has been prepared under my direction and personally reviewed by me in its entirety. I confirm that the note above accurately reflects all work, treatment, procedures, and medical decision making performed by me.
--- NOTE | 2019-05-07 08:36 | History & Physical Report ---
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 -Developed chest pain with associated SOB early this morning, improved with ntg but now 6/10 with radiation to left shoulder -EKG with sinus tachycardia and PVCs, LVH, non-specific T wave inversions -Initial troponin of 0.088, also in setting of CKD IIIb -Started on IV heparin in ED -CXR with findings of early and/or developing pulmonary edema versus diffuse bilateral parenchymal infiltrative change -Trend serial cardiac enzymes, 2D echo, repeat EKG in AM -Topical ntg, morphine PRN -Cardiology to evaluate (2) Heart failure, systolic, with acute decompensation: CXR with findings of early and/or developing pulmonary edema versus diffuse bilateral parenchymal infiltrative change -2D echo done in ED reveals EF of 30% with severe global hypokinesis of left ventricle, left atrium is moderately dilated, trivial loculated "stripe" anterior pericardial effusion, no significant valvular pathology -Given 60 mg IV Lasix in the ED. Plan to continue Lasix 40 mg IV twice daily schedule starting tonight at 2100 -Strict I's and O's, daily weights, low-sodium diet (3) Hypokalemia: Initial potassium of 3.2. Replacing -Magnesium level normal (4) Acute respiratory failure with hypoxia: In the setting of acute decompensated systolic heart failure -Currently saturating 95% on 3 L nasal cannula -Continue supplemental O2, expect improved respiratory status with diuresis -VQ scan also ordered for evaluation of PE. Not a candidate for CT PE due to baseline Cr ~ 2 (5) Chronic hepatitis C with cirrhosis: (6) History of liver transplant: History of failed liver transplant 1993, repeat liver transplant in 2004 at [facility] -Follows with Dr. Royal of [facility] -Continue CellCept, Rapamune (7) Diabetes mellitus, type II: A1c of 6.5 in Mar 2019 -Controls with diet and exercise -SSI while in-patient -BSG AC HS (8) HTN (hypertension): Initially elevated, now 138/75 with 1" nitro paste -Previously on lisinopril, discontinued by Dr. Moreno Mckinney in Mar 2019 due to increased Cr (9) CKD (chronic kidney disease), stage III: Baseline Cr ~2, monitor closely while receiving IV Lasix (10) History of duodenal ulcer: Aspirin contraindicated generally, but received in setting of NSTEMI -Continue PPI DVT Ppx: IV heparin Code status: FULL PCP: Faye Dispo: Admitted to PCU. Plan to return home once medically stable. Patient seen in collaboration with Dr. Godoy. Please see addendum. 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 Woke up at 330am with pain described as pulsating mid to lower sternal chest pain associated with shortness of breath. Pain was initially 7/10 and was given ntg in ED that did not resolve pain. Was given morphine which helped with pain but it has since returned and is 6/10 with pain radiating to left shoulder. Endorsing headache but denies diaphoresis, nausea or vomiting. No lightheadedness, near-syncope, abdominal pain, dysuria, constipation or diarrhea. Normally does not require oxygen but is 95% on 3L NC. No known history of CAD or CHF. Of note, recently went on [place] biking trip and had aspiration event with hemoptysis on 04/24/19. H/o GERD and normally sleeps with HOB elevated but was sleeping flat while camping. Was admitted to hospital at [place] due to concern for infection given immunosuppressed state but was diagnosed with aspiration pneumonitis with negative sputum cultures. Has been fine since return home and denies further episodes of aspiration. Allergies Allergy/AdvReac Type Severity Reaction Status Date / Time ketamine Allergy Intermediate hallucinati Verified 05/07/19 06:04 ons midazolam Allergy Intermediate headaches/ Verified 05/07/19 06:04 "hangover" diphenhydramine AdvReac Intermediate restless Verified 05/07/19 06:04 prochlorperazine AdvReac Intermediate ANXIETY Verified 05/07/19 06:04 Home Medications Home Medications Medication Instructions Recorded Confirmed Type allopurinol 300 mg PO QPM #0 tab 02/27/12 05/07/19 History trazodone 100 mg PO HS #0 tab 02/27/12 05/07/19 History albuterol sulfate 2 puff INHALATION Q4 PRN #0 01/01/17 05/07/19 History sirolimus 1 mg PO QPM #0 01/01/17 05/07/19 History atorvastatin 40 mg PO QPM #0 tab 01/09/18 05/07/19 History desipramine 25 mg PO QPM #0 01/09/18 05/07/19 History esomeprazole magnesium [Nexium] 40 mg PO BID #0 cap 01/09/18 05/07/19 History fexofenadine 180 mg PO DAILY PRN #0 tab 01/09/18 05/07/19 History mometasone 1 spray INTRANASAL DAILY PRN #0 01/09/18 05/07/19 History mycophenolate mofetil 500 mg PO QPM #0 tab 01/09/18 05/07/19 History pseudoephedrine-guaifenesin 1 tab PO Q12H PRN #0 tab 01/09/18 05/07/19 History magnesium salicylate 580 mg PO QPM 05/07/19 05/07/19 History Past Med/Surg History Medical History HTN (hypertension) (Chronic) Oquendo's esophagus (Chronic) Chronic hepatitis C with cirrhosis (Chronic) Arm pain (Chronic) HAS DORSAL COLUMN STIMULATOR FOR PAIN CONTROL 2007 Arthritis (Chronic) Femur fracture, left (Chronic) REPAIRED GERD (gastroesophageal reflux disease) (Chronic) Gout (Chronic) Hyperlipemia (Chronic) Surgical History History of liver transplant (Chronic) 1993 Rachel, 2005 [facility] H/O rhinoplasty (Chronic) History of biliary duct stent placement (Chronic) BILE DUCT STENTS INSERTED MULTIPLE TIMES History of bowel resection (Chronic) History of nasal septoplasty (Chronic) X 2 History of open reduction and internal fixation (ORIF) procedure (Chronic) left femur Hx of tonsillectomy (Chronic) Hx of tooth extraction (Chronic) Family History Other Diabetes Heart disease Social History Preferred Language: Spanish Communication Ability: Effective Beliefs That Will Affect Care: None Current Living Situation: Spouse Other Information That Helps Us Care for You: No Feels Safe at Home: Yes Safety Concerns: Feels Safe At This Time Smoking Status: Never smoker Second Hand Exposure: No ; Hx Alcohol Use: Yes Alcohol type: beer Hx Substance Use: No Review of Systems Review of Systems: At least ten systems reviewed and negative except as noted in the HPI. Physical Exam Physical Exam: General Appearance: WD/WN, vitals as above, NAD, appears pale, able to speak in full sentences on 3L NC O2 Head: normocephalic, atraumatic Eyes: normal inspection, PERRL, conjunctivae normal, anicteric sclerae ENT: external ear and nose normal, oropharynx normal Neck: trachea midline, no thyromegaly normal visual inspection Respiratory: bibasilar crackles, otherwise clear to auscultation. No wheezing or rhonchi. Normal insp/exp effort, no accessory muscle use Cardiovascular: tachycardic, regular rhythm, no murmur appreciated, normal p eripheral pulses, no BLE edema.. Vessels: no JVD or carotid bruit Chest: normal inspection of chest, no TTP of chest wall Abdomen/GI: normal bowel sounds, soft, nontender, no hepatosplenomegaly Extremities/Musculoskelatal: no cyanosis or clubbing, extremities motor strength 5/5 Neurologic: PERRL, EOMI, accommodation nl, no face palsy, no dysarthria CN's II-XI intact bilaterally and moves all extremities Psychiatric: A+Ox3, euthymic affect Skin: no rashes, normal color, warm/dry Results & Data Vital Signs (Past 12 Hours) Vital Signs Temp Pulse Pulse Resp BP BP Pulse Ox 05/07/19 06:53 95 H 20 141/76 H 94 05/07/19 06:33 86 20 132/65 93 05/07/19 06:18 92 H 20 141/83 H 91 05/07/19 06:08 99 H 20 178/86 H 94 05/07/19 06:03 94 05/07/19 06:01 94 05/07/19 05:43 36.3 C L 104 H 18 160/111 H 95 Laboratory Results Short CBC 05/07/19 05/07/19 05/07/19 Range/Units 05:58 05:58 05:58 WBC 13.64 H (4.8-10.8) K/uL RBC 4.76 (4.7-6.1) M/uL Hgb 13.1 L (14.0-18.0) g/dL Hct 39.2 L (42-52) % MCV 82.4 (80-100) fL MCH 27.5 (25-34) pg MCHC 33.4 (32-36) g/dL RDW Std Deviation 43.8 (36.4-46.3) fL RDW Coeff of Vicky 14.6 H (11.5-14.5) % Plt Count 342 (130-400) K/uL MPV 9.4 (7.4-10.4) fL Immature Gran % (Auto) 0.2 % Neut % (Auto) 76.4 % Lymph % (Auto) 14.3 % [place] % (Auto) 7.7 % Eos % (Auto) 1.3 % Baso % (Auto) 0.1 % Immature Gran # (Auto) 0.03 H (0.00-0.02) K/uL Neut # (Auto) 10.42 H (1.4-6.5) K/uL Lymph # (Auto) 1.95 (1.2-3.4) K/uL [place] # (Auto) 1.05 H (0.11-0.59) K/uL Eos # (Auto) 0.18 (0-0.5) K/uL Baso # (Auto) 0.01 (0-0.2) K/uL PT (9.0-12.0) Seconds INR (0.9-1.1) Sodium 138 (136-145) mmol/L Potassium 3.2 L (3.5-5.1) mmol/L Chloride 103 (98-107) mmol/L Carbon Dioxide 26 (21-32) mmol/L Anion Gap 9.0 (3-11) BUN 33 H (7-18) mg/dl Creatinine 2.17 H (0.6-1.4) mg/dl Est Cr Clr Drug Dosing 32.8 ml/min Est GFR ( Amer) 35.7 Est GFR (Non-Af Amer) 30.8 BUN/Creatinine Ratio 15.3 (10-20) Glucose 185 H (70-99) mg/dl Calcium 9.0 (8.5-10.1) mg/dl Magnesium (1.8-2.4) mg/dl Total Bilirubin 0.6 (0.2-1) mg/dl AST 26 (15-37) U/L ALT 25 (12-78) U/L Alkaline Phosphatase 157 H (45-117) U/L Troponin I 0.088 H* (0-0.045) ng/ml NT-Pro-B Natriuret Pep 9593 H Cancelled (0-900) pg/ml Total Protein 7.6 (6.4-8.2) gm/dl Albumin 3.2 L (3.4-5.0) gm/dl Globulin 4.4 H (2.5-4.0) gm/dl Albumin/Globulin Ratio 0.7 L (0.9-2) Lipase 140 (73-393) U/L 05/07/19 05/07/19 Range/Units 05:58 05:58 WBC (4.8-10.8) K/uL RBC (4.7-6.1) M/uL Hgb (14.0-18.0) g/dL Hct (42-52) % MCV (80-100) fL MCH (25-34) pg MCHC (32-36) g/dL RDW Std Deviation (36.4-46.3) fL RDW Coeff of Vicky (11.5-14.5) % Plt Count (130-400) K/uL MPV (7.4-10.4) fL Immature Gran % (Auto) % Neut % (Auto) % Lymph % (Auto) % [place] % (Auto) % Eos % (Auto) % Baso % (Auto) % Immature Gran # (Auto) (0.00-0.02) K/uL Neut # (Auto) (1.4-6.5) K/uL Lymph # (Auto) (1.2-3.4) K/uL Lynn # (Auto) (0.11-0.59) K/uL Eos # (Auto) (0-0.5) K/uL Baso # (Auto) (0-0.2) K/uL PT 10.2 (9.0-12.0) Seconds INR 1.0 (0.9-1.1) Sodium (136-145) mmol/L Potassium (3.5-5.1) mmol/L Chloride (98-107) mmol/L Carbon Dioxide (21-32) mmol/L Anion Gap (3-11) BUN (7-18) mg/dl Creatinine (0.6-1.4) mg/dl Est Cr Clr Drug Dosing ml/min Est GFR ( Amer) Est GFR (Non-Af Amer) BUN/Creatinine Ratio (10-20) Glucose (70-99) mg/dl Calcium (8.5-10.1) mg/dl Magnesium 1.9 (1.8-2.4) mg/dl Total Bilirubin (0.2-1) mg/dl AST (15-37) U/L ALT (12-78) U/L Alkaline Phosphatase (45-117) U/L Troponin I (0-0.045) ng/ml NT-Pro-B Natriuret Pep (0-900) pg/ml Total Protein (6.4-8.2) gm/dl Albumin (3.4-5.0) gm/dl Globulin (2.5-4.0) gm/dl Albumin/Globulin Ratio (0.9-2) Lipase (73-393) U/L BMP 05/07/19 05:58 Sodium 138 Potassium 3.2 L Chloride 103 Carbon Dioxide 26 BUN 33 H Creatinine 2.17 H Glucose 185 H Calcium 9.0 Cardiac Enzymes 05/07/19 Range/Units 05:58 Troponin I 0.088 H* (0-0.045) ng/ml Liver Function 05/07/19 Range/Units 05:58 Total Bilirubin 0.6 (0.2-1) mg/dl AST 26 (15-37) U/L ALT 25 (12-78) U/L Alkaline Phosphatase 157 H (45-117) U/L Albumin 3.2 L (3.4-5.0) gm/dl Diagnostic Findings CXR: IMPRESSION: Findings of early and/or developing pulmonary edema versus diffuse bilateral parenchymal infiltrative change. ECG Rhythm: sinus tachycardia Findings: + PVC and + T-wave inversion Supervising Physician Co-Signing Physician Notes Patient is a 64-year-old male with multiple comorbidities presents with history of sudden onset of chest pain associated with shortness of breath this morning. Please review HPI for complete details of presentation. It was noted to be hypoxic and requiring supplemental oxygen to maintain saturations. Chest x-ray suggestive of developing pulmonary edema versus bilateral parenchymal infiltrative change. Troponin elevated at 0.08. Hypokalemia noted at 3.2. Leukocytosis 13 K, lactic acid 2.4. Elevated ESR, CRP. Procalcitonin 0.06. EKG showed no signs of ST elevations. Started on IV heparin while in ED. Discussed with cardiology on-call. Elevated d-dimer. Negative VQ scan. Echo suggestive of EF 30%, severe global hypokinesis, left atrium is moderately dilated, trivial loculated anterior pericardial effusion. On exam patient is moderately built and nourished, no apparent distress, normocephalic atraumatic, lungs--decreased breath sounds, basal crackles, S1-S2, no murmur, abdomen soft nontender, grossly no focal neurological deficits, no pedal edema. On further discussion with tools developer Dr. Smith, patient would benefit from being transferred to [facility] for further management for acute CHF, myopericarditis and given history of liver transplant in the past. Plan to continue IV heparin for now. Also started on Zosyn empirically, no obvious source of infection. Trend lactate levels, blood cultures pending. I personally reviewed the record. Patient is interviewed and examined at bedside. Patient's care is coordinated with Courtney Aguilar PA-C. Please refer to the documentation above for details of patient's presentation and for discussion of other issues.
[2019-05-07] MEDS ORDERED: FUROSEMIDE 40 MG/4 ML VIAL IV ONE (09:07)
[2019-05-07] MEDS ORDERED: POTASSIUM CHLORIDE 20 MEQ TABCR PO STA ×2 (09:28→15:39)
[2019-05-07] MEDS ORDERED: POTASSIUM CHLORIDE 10 MEQ TABCR PO ONE (10:11)
[2019-05-07] MEDS ORDERED: PROMETHAZINE HCL 6.25 MG in SODIUM CHLORIDE 0.9% 50 ML IV STA (10:21)
[2019-05-07] MEDS ORDERED: METOPROLOL TARTRATE 25 MG TAB PO SCH (10:45)
--- NOTE | 2019-05-07 10:51 | Cardiology Consultation ---
Date of Consultation May 07, 2019 Assessment & Plan (1) Acute systolic heart failure: (2) Myopericarditis: (3) Acute respiratory failure with hypoxia: (4) Cardiomyopathy: (5) Frequent PVCs: (6) Substernal chest pain: (7) Elevated troponin I level: (8) Hypomagnesemia: (9) CKD (chronic kidney disease), stage III: 64-year-old patient admitted with acute decompensated systolic heart failure. Myopericarditis suspected with elevation of inflammatory markers, mildly elevated troponin, and reduced LV systolic function. Recommend initiation of IV diuretic therapy. Currently reporting pleuritic chest discomfort as well as discomfort associated with premature ventricular complexe s. ECG without significant ST depression or elevation. Echocardiogram demonstrating new onset cardiomyopathy with ejection fraction of 30%. Currently, recommend avoiding NSAIDs in the setting of depressed LV systolic function, possible myocarditis, and renal dysfunction. I suspect elevated troponin is a type II, demand ischemia, event related to acute decompensated systolic heart failure vs myocarditis. Repeat troponin x1 now. Intravenous heparin initiated by ER physician. Add metoprolol 25 mg twice daily. First dose now. Will not add AMY inhibitor, ARB, or Aldactone at this time due to presence of renal insufficiency. Supplement potassium as indicated. Replace magnesium. Assess d-dimer, CRP, and ESR. 45 minutes critical care time spent evaluating patient, formulating plan of c are, discussing treatment with consultants, and reviewing pertinent medical records/data. History of Present Illness Reason for Consultation: Chest pain, congestive heart failure Requesting Physician: Courtney Aguilar PA-C Attending Physician: Dr. Qiu History of Present Illness 64-year-old patient presents the emergency department with chest pain. Patient awoke in the middle night with significant substernal sharp and stabbing discomfort. Discomfort waxed and waned for approximately 3 hours. Ultimately his brought him to the emergency department. In the ER patient treated with morphine, sublingual nitroglycerin and IV heparin. Carries a history of cirrhosis status post liver transplant x2, chronic kidney disease, and recent aspiration pneumonia. Patient states morphine improve/lessens chest discomfort. No significant ST depression or elevation on ECG. Telemetry and ECG demonstrated frequent premature ventricular complexes in a pattern of ventricular bigeminy. Patient reports a "thumping" sensation in his mid chest. Discomfort improved with shallow breathing. Worse with deep inspiration. Denies orthopnea or PND. Recently participated in a long distance bike ride, approximately 260 miles. It was during that bike ride that he suffered the aspiration event. Denies personal history of coronary disease, congestive heart failure, or rheumatic fever as a child. Most recent echocardiogram removed reviewed in the [facility] record treat preserved LV systolic function Bedside 2D transthoracic echocardiogram performed in ER demonstrates severe LV dysfunction with an ejection fraction of 30%. No significant valvular pathology. Allergies Allergy/AdvReac Type Severity Reaction Status Date / Time ketamine Allergy Intermediate hallucinati Verified 05/07/19 06:04 ons midazolam Allergy Intermediate headaches/ Verified 05/07/19 06:04 "hangover" diphenhydramine AdvReac Intermediate restless Verified 05/07/19 06:04 prochlorperazine AdvReac Intermediate ANXIETY Verified 05/07/19 06:04 Home Medications Home Medications Medication Instructions Recorded Confirmed Type allopurinol 300 mg PO QPM #0 tab 02/27/12 05/07/19 History trazodone 100 mg PO HS #0 tab 02/27/12 05/07/19 History albuterol sulfate 2 puff INHALATION Q4 PRN #0 01/01/17 05/07/19 History sirolimus 1 mg PO QPM #0 01/01/17 05/07/19 History atorvastatin 40 mg PO QPM #0 tab 01/09/18 05/07/19 History desipramine 25 mg PO QPM #0 01/09/18 05/07/19 History esomeprazole magnesium [Nexium] 40 mg PO BID #0 cap 01/09/18 05/07/19 History fexofenadine 180 mg PO DAILY PRN #0 tab 01/09/18 05/07/19 History mometasone 1 spray INTRANASAL DAILY PRN #0 01/09/18 05/07/19 History mycophenolate mofetil 500 mg PO QPM #0 tab 01/09/18 05/07/19 History pseudoephedrine-guaifenesin 1 tab PO Q12H PRN #0 tab 01/09/18 05/07/19 History magnesium salicylate 580 mg PO QPM 05/07/19 05/07/19 History Patient History Medical History HTN (hypertension) (Chronic) Oquendo's esophagus (Chronic) Chronic hepatitis C with cirrhosis (Chronic) Arm pain (Chronic) HAS DORSAL [employer]UMN STIMULATOR FOR PAIN CONTROL 2007 Arthritis (Chronic) Femur fracture, left (Chronic) REPAIRED GERD (gastroesophageal reflux disease) (Chronic) Gout (Chronic) Hyperlipemia (Chronic) Surgical History History of liver transplant (Chronic) 1993 Rachel, 2005 [facility] H/O rhinoplasty (Chronic) History of biliary duct stent placement (Chronic) BILE DUCT STENTS INSERTED MULTIPLE TIMES History of bowel resection (Chronic) History of nasal septoplasty (Chronic) X 2 History of open reduction and internal fixation (ORIF) procedure (Chronic) left femur Hx of tonsillectomy (Chronic) Hx of tooth extraction (Chronic) Family History Other Diabetes Heart disease Social History Preferred Language: Bengali Communication Ability: Effective Beliefs That Will Affect Care: None Current Living Situation: Spouse Other Information That Helps Us Care for You: No Feels Safe at Home: Yes Safety Concerns: Feels Safe At This Time Smoking Status: Never smoker Second Hand Exposure: No ; Hx Alcohol Use: Yes Alcohol type: beer Hx Substance Use: No Review of Systems Review of Systems: All systems reviewed & are unremarkable except as noted in HPI & below Physical Exam Physical Exam: General: NAD, AAO x3, well nourished. HEENT: Normocephalic. Atraumatic. Conjunctiva pink, no scleral icterus. Neck: No carotid bruits, the carotid upstrokes are brisk. No JVD. No HJR Heart: Regular with frequent ectopy. Normal S-1 and S-2 no S-3 or S-4 gallop. No murmurs or rub appreciated. PMI is not displaced. No RV heave. Lungs: Diminished breath sounds with crackles bilaterally. No rhonchi or wheeze. Abdomen: Normal bowel sounds. Soft. Nontender. No masses or organomegaly. No abdominal bruits. Extremities: No clubbing, cyanosis, or edema. Pulses: radial=2/4, Dorsalis pedis =2/4, posterior tibial=2/4. Neuro: Cranial nerves grossly intact. No focal motor deficit. Results & Data Vital Signs (Past 12 Hours) Vital Signs Temp Pulse Pulse Resp BP BP Pulse Ox 05/07/19 09:20 100 H 22 138/75 95 05/07/19 09:15 51 L 23 148/98 H 97 05/07/19 09:11 103 H 26 H 139/97 94 05/07/19 09:05 49 L 19 154/72 H 95 05/07/19 09:00 49 L 29 H 151/73 H 96 05/07/19 08:55 47 L 24 151/75 H 97 05/07/19 08:50 49 L 24 163/88 H 97 05/07/19 08:45 49 L 27 H 139/99 97 05/07/19 08:40 97 H 18 146/94 H 97 05/07/19 08:35 82 24 146/103 H 96 05/07/19 08:30 99 H 23 143/105 H 96 05/07/19 08:25 46 L 24 152/97 H 97 05/07/19 08:20 100 H 26 H 152/95 H 97 05/07/19 08:15 96 H 21 146/93 H 98 05/07/19 08:10 96 H 16 143/97 H 98 05/07/19 08:05 96 H 17 147/88 H 98 05/07/19 08:00 95 H 21 143/101 H 98 05/07/19 07:55 95 H 16 139/94 97 05/07/19 07:50 94 H 20 141/91 H 97 05/07/19 07:45 99 H 20 138/99 97 05/07/19 07:40 96 H 20 137/98 96 05/07/19 07:35 96 H 18 146/87 H 96 05/07/19 07:30 98 H 21 144/85 H 96 05/07/19 07:25 96 H 18 138/93 96 05/07/19 07:20 95 H 21 138/91 96 05/07/19 07:15 97 H 24 142/88 H 96 05/07/19 07:10 96 H 22 148/87 H 95 05/07/19 07:05 96 H 22 137/88 95 05/07/19 07:00 100 H 23 134/83 95 05/07/19 06:55 93 H 23 143/85 H 95 05/07/19 06:53 95 H 20 141/76 H 94 05/07/19 06:50 93 H 22 141/76 H 94 05/07/19 06:49 96 H 17 144/90 H 94 05/07/19 06:45 96 H 27 H 145/83 H 93 05/07/19 06:40 98 H 24 149/99 H 93 05/07/19 06:35 96 H 24 136/72 93 05/07/19 06:33 86 20 132/65 93 05/07/19 06:30 132/65 93 05/07/19 06:25 139/84 92 05/07/19 06:20 148/91 H 92 05/07/19 06:18 92 H 20 141/83 H 91 05/07/19 06:16 141/83 H 93 05/07/19 06:13 89 141/81 H 94 05/07/19 06:08 108 H 99 H 11 L 178/86 H 178/86 H 95 05/07/19 06:03 94 05/07/19 06:01 94 05/07/19 06:00 100 H 25 H 95 05/07/19 05:57 102 H 20 160/111 H 95 05/07/19 05:52 108 H 26 H 174/122 H 05/07/19 05:43 36.3 C L 104 H 18 160/111 H 95 Laboratory Results Laboratory Results - last 24 hr 05/07/19 05/07/19 05/07/19 05:58 05:58 05:58 WBC 13.64 H RBC 4.76 Hgb 13.1 L Hct 39.2 L MCV 82.4 MCH 27.5 MCHC 33.4 RDW Std Deviation 43.8 RDW Coeff of Vicky 14.6 H Plt Count 342 MPV 9.4 Immature Gran % (Auto) 0.2 Neut % (Auto) 76.4 Lymph % (Auto) 14.3 [place] % (Auto) 7.7 Eos % (Auto) 1.3 Baso % (Auto) 0.1 Immature Gran # (Auto) 0.03 H Neut # (Auto) 10.42 H Lymph # (Auto) 1.95 [place] # (Auto) 1.05 H Eos # (Auto) 0.18 Baso # (Auto) 0.01 PT INR Sodium 138 Potassium 3.2 L Chloride 103 Carbon Dioxide 26 Anion Gap 9.0 BUN 33 H Creatinine 2.17 H Est Cr Clr Drug Dosing 32.8 Est GFR ( Amer) 35.7 Est GFR (Non-Af Amer) 30.8 BUN/Creatinine Ratio 15.3 Glucose 185 H Calcium 9.0 Magnesium Total Bilirubin 0.6 AST 26 ALT 25 Alkaline Phosphatase 157 H Troponin I 0.088 H* NT-Pro-B Natriuret Pep 9593 H Cancelled Total Protein 7.6 Albumin 3.2 L Globulin 4.4 H Albumin/Globulin Ratio 0.7 L Lipase 140 05/07/19 05/07/19 05:58 05:58 WBC RBC Hgb Hct MCV MCH MCHC RDW Std Deviation RDW Coeff of Vicky Plt Count MPV Immature Gran % (Auto) Neut % (Auto) Lymph % (Auto) [place] % (Auto) Eos % (Auto) Baso % (Auto) Immature Gran # (Auto) Neut # (Auto) Lymph # (Auto) [place] # (Auto) Eos # (Auto) Baso # (Auto) PT 10.2 INR 1.0 Sodium Potassium Chloride Carbon Dioxide Anion Gap BUN Creatinine Est Cr Clr Drug Dosing Est GFR ( Amer) Est GFR (Non-Af Amer) BUN/Creatinine Ratio Glucose Calcium Magnesium 1.9 Total Bilirubin AST ALT Alkaline Phosphatase Troponin I NT-Pro-B Natriuret Pep Total Protein Albumin Globulin Albumin/Globulin Ratio Lipase
[2019-05-07] MEDS: NITROGLYCERIN 2% OINTMENT 30GM TUBE EXT SCH ×2 (10:57→15:38)
[2019-05-07] MEDS ORDERED: PROMETHAZINE HCL 6.25 MG in SODIUM CHLORIDE 0.9% 50 ML IV PRN (10:57)
[2019-05-07] MEDS ORDERED: ASPIRIN 81 MG ECTAB PO SCH (11:00)
[2019-05-07] MEDS ORDERED: GLUCAGON FOR INJ 1 MG VIAL SQ PRN (11:14)
[2019-05-07] MEDS ORDERED: GLUCOSE 40% GEL 15 GM TUBE PO PRN (11:14)
[2019-05-07] MEDS ORDERED: CARBOHYDRATES FOR HYPOGLYCEMIA PO PRN (11:14)
[2019-05-07] MEDS ORDERED: DEXTROSE 50% 50 ML SYRINGE IV PRN (11:14)
[2019-05-07] MEDS ORDERED: GLUCOSE 10 TABS/TUBE PO PRN (11:14)
[2019-05-07] MEDS: MoRPHine SULFATE 2 MG/ML CARP IV PRN ×2 (11:38→18:49)
[2019-05-07 11:48] LABS: C Reactive Protein 3.65 mg/dl (0-0.29); Troponin I 0.058 ng/ml (0-0.045)
--- NOTE | 2019-05-07 12:37 | Nuclear Medicine Report ---
NM pul vent and perfuse CLINICAL HISTORY: Dyspnea. Chest pain. COMPARISON: None TECHNIQUE: For the ventilation portion of this exam, 30 mCi of DTPA was inhaled at 11:40 AM. Immedi ately following inhalation, imaging of the chest was carried out in the anterior, posterior, left lat eral, right lateral, LPO, RPO, SPANISH and SIERRA projections. For the perfusion portion of exam, 5.5 mCi o f technetium 99m MAA was injected IV at 12:15 PM. Immediately following injection, imaging of the jimmie st was carried out in the same projections. FINDINGS: Uniform activity characteristics on both ventilation and perfusion. No significant ventila tion/perfusion defect. No significant ventilation/perfusion mismatch. IMPRESSION: Normal lung scan The above report was generated using voice recognition software. It may contain grammatical, syntax or spelling errors. Electronically signed by: Adolfo Galvez M.D. 05/07/2019 12:35 PM
[2019-05-07] MEDS: INSULIN ASPART 100 UNITS/ML 3 ML PEN SC SCH ×2 (12:48→16:57)
[2019-05-07] MEDS: POTASSIUM CHLORIDE / WTR 10 MEQ/100 ML PLCT IV SCH ×3 (12:58→13:07)
[2019-05-07] MEDS: MAGNESIUM SULFATE / D5W 1 GM/100 ML BAG IV SCH ×2 (12:58→13:06)
[2019-05-07 13:35] LABS: Partial Thromboplastin Ratio 1.5; Partial Thromboplastin Time 41.7 Seconds (21.0-31.0)
[2019-05-07] MEDS ORDERED: HEPARIN IV BOLUS 3,000 UNITS in SYRINGE 0 ML IV ONE (13:47)
[2019-05-07 15:32] LABS: BUN Creatinine Ratio 14.8 (10-20); Creatinine Clr Calc Pharmacy 30.6 ml/min; Est GFR (African American) 32.8; Est GFR (Non-African American) 28.3; Magnesium 1.8 mg/dl (1.8-2.4); Potassium 3.5 mmol/L (3.5-5.1)
[2019-05-07 15:41] LABS: Troponin I 0.069 ng/ml (0-0.045)
[2019-05-07] MEDS ORDERED: MAGNESIUM SULFATE / D5W 1 GM/100 ML BAG IV SCH (15:45)
[2019-05-07 15:53] LABS: D Dimer 2680 ug/L FEU (0-500)
--- NOTE | 2019-05-07 16:03 | Cardiology Progress Note ---
Date of Service May 07, 2019 Assessment & Plan (1) Myopericarditis: (2) Acute systolic heart failure: (3) Acute respiratory failure with hypoxia: (4) Cardiomyopathy: (5) Frequent PVCs: (6) Elevated troponin I level: (7) Hypomagnesemia: (8) CKD (chronic kidney disease), stage III: Recommend transfer to tertiary care facility for further management of acute myopericarditis. IV heparin will be discontinued at this time. Replace potassium and magnesium as indicated. Continue beta-heber therapy. Case discussed with inpatient cardiology service at [facility]. Patient accepted for transfer. Subjective Patient seen in follow-up of afternoon lab studies. Troponins remain flat. Pleuritic chest discomfort somewhat improved with morphine. Repeat ECG demonstrates [place] depression with borderline diffuse ST elevation. Currently res ting comfortably. Hemodynamically stable. Frequency of premature ventricular complexes has declined with addition of beta-heber therapy and electrolyte replacement. Results & Data Vital Signs (Past 12 Hours) Vital Signs Temp Pulse Pulse Pulse Resp BP BP 05/07/19 15:55 36.4 C L 87 23 118/73 05/07/19 14:33 143/103 H 05/07/19 10:52 105 H 05/07/19 10:40 36.4 C L 102 H 21 148/106 H 05/07/19 10:00 50 L 24 154/88 H 05/07/19 09:30 62 19 161/78 H 05/07/19 09:26 96 H 23 166/78 H 05/07/19 09:20 100 H 22 138/75 05/07/19 09:15 51 L 23 148/98 H 05/07/19 09:11 103 H 26 H 139/97 05/07/19 09:05 49 L 19 154/72 H 05/07/19 09:00 49 L 29 H 151/73 H 05/07/19 08:55 47 L 24 151/75 H 05/07/19 08:50 49 L 24 163/88 H 05/07/19 08:45 49 L 27 H 139/99 05/07/19 08:40 97 H 18 146/94 H 05/07/19 08:35 82 24 146/103 H 05/07/19 08:30 99 H 23 143/105 H 05/07/19 08:25 46 L 24 152/97 H 05/07/19 08:20 100 H 26 H 152/95 H 05/07/19 08:15 96 H 21 146/93 H 05/07/19 08:10 96 H 16 143/97 H 05/07/19 08:05 96 H 17 147/88 H 05/07/19 08:00 95 H 21 143/101 H 05/07/19 07:55 95 H 16 139/94 05/07/19 07:50 94 H 20 141/91 H 05/07/19 07:45 99 H 20 138/99 05/07/19 07:40 96 H 20 137/98 05/07/19 07:35 96 H 18 146/87 H 05/07/19 07:30 98 H 21 144/85 H 05/07/19 07:25 96 H 18 138/93 05/07/19 07:20 95 H 21 138/91 05/07/19 07:15 97 H 24 142/88 H 05/07/19 07:10 96 H 22 148/87 H 05/07/19 07:05 96 H 22 137/88 05/07/19 07:00 100 H 23 134/83 05/07/19 06:55 93 H 23 143/85 H 05/07/19 06:53 95 H 20 141/76 H 05/07/19 06:50 93 H 22 141/76 H 05/07/19 06:49 96 H 17 144/90 H 05/07/19 06:45 96 H 27 H 145/83 H 05/07/19 06:40 98 H 24 149/99 H 05/07/19 06:35 96 H 24 136/72 05/07/19 06:33 86 20 132/65 05/07/19 06:30 132/65 05/07/19 06:25 139/84 05/07/19 06:20 148/91 H 05/07/19 06:18 92 H 20 141/83 H 05/07/19 06:16 141/83 H 05/07/19 06:13 89 141/81 H 05/07/19 06:08 108 H 99 H 11 L 178/86 H 178/86 H 05/07/19 06:03 05/07/19 06:01 05/07/19 06:00 100 H 25 H 05/07/19 05:57 102 H 20 160/111 H 05/07/19 05:52 108 H 26 H 174/122 H 05/07/19 05:43 36.3 C L 104 H 18 160/111 H Pulse Ox 05/07/19 15:55 96 05/07/19 14:33 05/07/19 10:52 05/07/19 10:40 94 05/07/19 10:00 96 05/07/19 09:30 95 05/07/19 09:26 95 05/07/19 09:20 95 05/07/19 09:15 97 05/07/19 09:11 94 05/07/19 09:05 95 05/07/19 09:00 96 05/07/19 08:55 97 05/07/19 08:50 97 05/07/19 08:45 97 05/07/19 08:40 97 05/07/19 08:35 96 05/07/19 08:30 96 05/07/19 08:25 97 05/07/19 08:20 97 05/07/19 08:15 98 05/07/19 08:10 98 05/07/19 08:05 98 05/07/19 08:00 98 05/07/19 07:55 97 05/07/19 07:50 97 05/07/19 07:45 97 05/07/19 07:40 96 05/07/19 07:35 96 05/07/19 07:30 96 05/07/19 07:25 96 05/07/19 07:20 96 05/07/19 07:15 96 05/07/19 07:10 95 05/07/19 07:05 95 05/07/19 07:00 95 05/07/19 06:55 95 05/07/19 06:53 94 05/07/19 06:50 94 05/07/19 06:49 94 05/07/19 06:45 93 05/07/19 06:40 93 05/07/19 06:35 93 05/07/19 06:33 93 05/07/19 06:30 93 05/07/19 06:25 92 05/07/19 06:20 92 05/07/19 06:18 91 05/07/19 06:16 93 05/07/19 06:13 94 05/07/19 06:08 95 05/07/19 06:03 94 05/07/19 06:01 94 05/07/19 06:00 95 05/07/19 05:57 95 05/07/19 05:52 05/07/19 05:43 95
[2019-05-07] MEDS ORDERED: PIPERACILL/TAZOBAC CONSULT ACTIVE PRN (16:23)
--- NOTE | 2019-05-07 16:27 | Discharge Summary ---
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 Woke up at 330am with pain described as pulsating mid to lower sternal chest pain associated with shortness of breath. Pain was initially 7/10 and was given ntg in ED that did not resolve pain. Was given morphine which helped with pain but it has since returned and is 6/10 with pain radiating to left shoulder. Endorsing headache but denies diaphoresis, nausea or vomiting. No lightheadedness, near-syncope, abdominal pain, dysuria, constipation or diarrhea. Normally does not require oxygen but is 95% on 3L NC. No known history of CAD or CHF. Of note, recently went [place] and had aspiration event with hemoptysis on 04/24/19. H/o GERD and normally sleeps with HOB elevated but was sleeping flat while camping. Was admitted to hospital at [facility] due to concern for infection given immunosuppressed state but was diagnosed with aspiration pneumonitis with negative sputum cultures. Has been fine since return home and denies further episodes of aspiration. Admission Exam Per Admitting Provider General Appearance: WD/WN, vitals as above, NAD, appears pale, able to speak in full sentences on 3L NC O2 Head: normocephalic, atraumatic Eyes: normal inspection, PERRL, conjunctivae normal, anicteric sclerae ENT: external ear and nose normal, oropharynx normal Neck: trachea midline, no thyromegaly normal visual inspection Respiratory: bibasilar crackles, otherwise clear to auscultation. No wheezing or rhonchi. Normal insp/exp effort, no accessory muscle use Cardiovascular: tachycardic, regular rhythm, no murmur appreciated, normal peripheral pulses, no BLE edema.. Vessels: no JVD or carotid bruit Chest: normal inspection of chest, no TTP of chest wall Abdomen/GI: normal bowel sounds, soft, nontender, no hepatosplenomegaly Extremities/Musculoskelatal: no cyanosis or clubbing, extremities motor strength 5/5 Neurologic: PERRL, EOMI, accommodation nl, no face palsy, no dysarthria CN's II-XI intact bilaterally and moves all extremities Psychiatric: A+Ox3, euthymic affect Skin: no rashes, normal color, warm/dry Principal Diagnosis Acute systolic CHF exacerbation ACUTE Myopericarditis Chest Pain R/O ACS Hypertensive urgency Hypokalemia Lactic acidosis Elevated troponin, d-dimer Discharge Data Allergies Allergy/AdvReac Type Severity Reaction Status Date / Time ketamine Allergy Intermediate hallucinati Verified 05/07/19 06:04 ons midazolam Allergy Intermediate headaches/ Verified 05/07/19 06:04 "hangover" diphenhydramine AdvReac Intermediate restless Verified 05/07/19 06:04 prochlorperazine AdvReac Intermediate ANXIETY Verified 05/07/19 06:04 Consultations 05/07/19 07:28 ED Decision to Admit Stat 05/07/19 08:56 Consult Cardiology Routine 05/07/19 15:54 Burn CD for patient Stat Procedures Performed CXR: Findings of early and/or developing pulmonary edema versus diffuse bilateral parenchymal infiltrative change. 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 -Developed chest pain with associated SOB early this morning, improved with ntg but now 6/10 with radiation to left shoulder -EKG with sinus tachycardia and PVCs, LVH, non-specific T wave inversions -Initial troponin of 0.088, also in setting of CKD IIIb -Started on IV heparin in ED -CXR with findings of early and/or developing pulmonary edema versus diffuse bilateral parenchymal infiltrative change -Trend serial cardiac enzymes, 2D echo, repeat EKG in AM -Topical ntg, morphine PRN -Cardiology to evaluate (2) Heart failure, systolic, with acute decompensation: CXR with findings of early and/or developing pulmonary edema versus diffuse bilateral parenchymal infiltrative change -2D echo done in ED reveals EF of 30% with severe global hypokinesis of left ventricle, left atrium is moderately dilated, trivial loculated "stripe" anterior pericardial effusion, no significant valvular pathology -Given 60 mg IV Lasix in the ED. Plan to continue Lasix 40 mg IV twice daily sc hedule starting tonight at 2100 -Strict I's and O's, daily weights, low-sodium diet (3) Hypokalemia: Initial potassium of 3.2. Replacing -Magnesium level normal (4) Acute respiratory failure with hypoxia: In the setting of acute decompensated systolic heart failure -Currently saturating 95% on 3 L nasal cannula -Continue supplemental O2, expect improved respiratory status with diuresis -VQ scan also ordered for evaluation of PE. Not a candidate for CT PE due to baseline Cr ~ 2 (5) Chronic hepatitis C with cirrhosis: (6) History of liver transplant: History of failed liver transplant 1993, repeat liver transplant in 2004 at [facility] -Follows with Dr. Royal of [facility] -Continue CellCept, Rapamune (7) Diabetes mellitus, type II: A1c of 6.5 in Mar 2019 -Controls with diet and exercise -SSI while in-patient -BSG AC HS (8) HTN (hypertension): Initially elevated, now 138/75 with 1" nitro paste -Previously on lisinopril, discontinued by Dr. Moreno Mckinney in Mar 2019 due to increased Cr (9) CKD (chronic kidney disease), stage III: Baseline Cr ~2, monitor closely while receiving IV Lasix (10) History of duodenal ulcer: Aspirin contraindicated generally, but received in setting of NSTEMI -Continue PPI DVT Ppx: IV heparin Code status: FULL PCP: Faye Dispo: Admitted to PCU. Plan to return home once medically stable. Patient seen in collaboration with Dr. Godoy. Please see addendum. Patient is a 64-year-old male with multiple comorbidities presents with history of sudden onset of chest pain associated with shortness of breath this morning. Please review HPI for complete details of presentation. Patient was noted to be hypoxic and requiring supplemental oxygen to maintain saturations. Blood pressure is elevated suggestive Hypertensive Urgency. Chest x-ray suggestive of developing pulmonary edema versus bilateral parenchymal infiltrative change. Troponin elevated at 0.08. Hypokalemia noted at 3.2. Leukocytosis 13 K, lactic acid 2.4. Elevated ESR, CRP. Procalcitonin 0.06. Elevated d-dimer. EKG showed no signs of ST elevations. Started on IV heparin while in ED. Discussed with cardiology on-call. Negative VQ scan. Echo suggestive of EF 30%, severe global hypokinesis, left atrium is moderately dilated, trivial loculated anterior pericardial effusion. On exam patient is moderately built and nourished, no apparent distress, normocephalic atraumatic, lungs--decreased breath sounds, basal crackles, S1-S2, no murmur, abdomen soft nontender, grossly no focal neurological deficits, no pedal edema. On further discussion with engineering technologist Dr. Penaloza, patient would benefit from being transferred to [facility] for further management for acute CHF, myopericarditis, Hypertensive Urgency and given history of liver transplant in the past. Replaced potassium. Received Lasix. Plan to continue IV heparin for now. Received Aspirin in ED. Also started on Zosyn empirically, no obvious source of infection. Started on Metoprolol. Trend lactate levels, blood cultures pending. Monitor Daily weight, I/Os, fluid restriction. Continue supplemental oxygen as needed. Appreciate cardiology input. Plan to be transferred to [facility] for further management. Patient is accepted by Dr. Sameera Valdez, cardiology for further evaluation management. Total Time Total Time Spent Total Time Spent (In Minutes): 40 minutes Total Time Includes: Examination of the Patient, Discharge Planning, Medication Reconciliation, Communication With Other Providers and Other Discharge Plan Discharge Items Patient Disposition: Transfer Acute Care Hospital Reason For Visit: NSTEMI Discharge Diagnosis: Acute systolic CHF exacerbation Myopericarditis Chest Pain R/O ACS Hypertensive urgency Hypokalemia Lactic acidosis Elevated troponin, d-dimer Activity: Per Instructions section Exercise/Sports: Wait until after follow-up appointment Non-emergency contact: Primary Care Provider and Spring Encaser Call non-emergency contact if: you have any medication questions, your symptoms worsen, your pain is not controlled, your pain is worsening, your pain is unusual for you, your pain is concerning for you and you have a fever Follow-up/Referrals: Terrie Mckinney MD [Primary Care Provider] - Diet: Carb Consistent or DM2 and Heart Healthy Fluids: 1500ml (6 cups) Addtl Attending Provider Instructions: Follow-up with Dr. Sameera Valdez at [facility] for further evaluation and management. Follow-up with your PCP Dr. Hudson, your engineering technologist upon discharge from the hospital. Call your Primary Care doctor if any of the following symptoms or problems start or get worse: * Shortness of breath or difficulty breathing * Wake up at night short of breath * Chest pain * Cough * Swelling of your hands, feet, or legs * More fatigued or tired with your normal activity * Palpitations - sudden fast heart beats WEIGHT * Weigh yourself every morning after using the bathroom. * Use the same scale. * Wear the same amount of clothing. * Write your weight down on a chart. * Call your Primary Care doctor if you gain more than 2-3 pounds in 1-2 days. MEDICATIONS * Use this discharge instruction sheet for medication instructions. * Take your medications at the time your doctor ordered. * Do not skip a dose of your medicines. * If you miss a dose of medicine, take it as soon as possible, but DO NOT DOUBLE A DOSE. * Read your medicine information when you get home. * Know all of the side effects of your medicine. If in doubt, ask your pharmacist * Call your Primary Care doctor's office if you have any side effects. * Be sure all of your doctors know what medicine and herbs you take (including cold, flu, and herbal medicine). Take the following with you to your follow-up doctor appointments: * Weight Chart * Medication List * List of questions Do not drink excessive alcohol, beer or wine. Pending Studies at Discharge: Yes Studies:: Blood cultures Stand-Alone Forms: Call Back Authorization, [facility] Skilled Items Patient informed of condition?: Yes DNR: No Discharge Level of Care: Other Communicable Disease: No Discharge Prognosis: Stable Lines: Peripheral IV Urinary Catheter: No Medications and DC Order Prescriptions: New nitroglycerin [Nitrostat] 0.4 mg Tablet, Sublingual 0.4 mg sublingual UD PRN (Reason: chest pain) Qty: 1 RF: 0 aspirin [Ecotrin Low Strength] 81 mg Tablet,Delayed Release (Dr/Ec) 81 mg PO QAM Qty: 0 RF: 0 Nitro-Bid 2 % Ointment 1 inch EXT Q6H Qty: 0 RF: 0 metoprolol tartrate 25 mg Tablet 25 mg PO BID Qty: 0 RF: 0 Continued trazodone 50 mg Tablet 100 mg PO HS Qty: 0 RF: 0 allopurinol 300 mg Tablet 300 mg PO QPM Qty: 0 RF: 0 sirolimus 1 mg Tablet 1 mg PO QPM Qty: 0 RF: 0 albuterol sulfate 90 mcg/actuation Aerosol Powdr Breath Activated 2 puff INHALATION Q4 PRN (Reason: SOB) Qty: 0 RF: 0 atorvastatin 40 mg Tablet 40 mg PO QPM Qty: 0 RF: 0 desipramine 25 mg Tablet 25 mg PO QPM Qty: 0 RF: 0 fexofenadine 180 mg Tablet 180 mg PO DAILY PRN (Reason: Allergy Symptoms) Qty: 0 RF: 0 mycophenolate mofetil 500 mg Tablet 500 mg PO QPM Qty: 0 RF: 0 pseudoephedrine-guaifenesin 120-1,200 mg Tablet Extended Release 12 Hr 1 tab PO Q12H PRN (Reason: Allergy Symptoms) Qty: 0 RF: 0 esomeprazole magnesium [Nexium] 40 mg Capsule,Delayed Release(Dr/Ec) 40 mg PO BID Qty: 0 RF: 0 mometasone 50 mcg/actuation [place],Non-Aerosol 1 spray INTRANASAL DAILY PRN (Reason: Allergy Symptoms) Qty: 0 RF: 0 magnesium salicylate 580 (467) mg Tablet 580 mg PO QPM RF: 0 Discharge Orders: Discharge Order (Routine); Ordered 05/07/19 Ordered By: Pasquale Godoy Admission Data Admit Date/Time: 05/07/19 08:49 Attending Provider: Pasquale Godoy Admit Provider: Pasquale Godoy Primary Care Provider: Terrie Mckinney Other Providers: Jhon Penaloza ; Arnav Dennis
[2019-05-07] MEDS ORDERED: PIPERACILLIN/TAZOBACTAM 3.375 GM in DEXTROSE 5% 100 ML IV ONE (16:45)
[2019-05-07 19:51] VITALS: BP 97/65; PULSE 90; TEMP 97.9; O2SAT 93
[2019-05-07] MEDS ORDERED: FUROSEMIDE 40 MG in SYRINGE 0 ML IV SCH (21:00)
[2019-05-07] MEDS ORDERED: PIPERACILLIN/TAZOBACTAM 3.375 GM in DEXTROSE 5% 100 ML IV SCH (22:00)
--- NOTE | 2019-05-13 08:23 | Coding Query ---
CODING QUERY To promote full compliance with coding requirements relating to patient care, provider participation is requested in all cases of icd 9 coder uncertainty. Please assist us with the question(s) below: Coding Question(s): Please clarify below, in your clinical opinion, regarding documentation in the record of NSTEMI. ( ) Possible NSTEMI ( ) NSTEMI is Ruled-Out (X ) Other: Please Specify___Not Sure Physician's Response(s): Thank you Qi Santa Principal Diagnosis: "that condition established after study, to be chiefly responsible for occasioning the admission of the patient to the hospital for care." Co-Existing Principal Diagnosis: "when two or more diagnoses equally meet the criteria for principal diagnosis as determined by the circumstances of admission, diagnostic work up, and/or therapy provided, and the Alphabetic Index, Tabular List, or another coding guideline does not provide sequencing direction, any one of the diagnoses may be sequenced first." "When the physician has documented what appears to be a current diagnosis in the body of the record, but has not included the diagnosis in the final diagnostic statement, the physician should be asked whether the diagnosis should be added." (Source Coding Clinic 2 QTR90. p3-4) TREY
== END 2019-05-07 20:11 | disposition short-term general hospital (02) | DRG 314 ==
LOC: ED 05:42 → 2E 08:49

== ENCOUNTER 2019-05-17 17:36 | Inpatient (IN) ==
[2019-05-17] MEDS ORDERED: ONDANSETRON INJ 2 MG/ML 2 ML VIAL IV STA (18:22)
--- NOTE | 2019-05-17 18:27 | Emergency Department Note ---
Entered by Angela Ni acting as a scribe for History of Present Illness General Chief complaint: Chest Pain Stated complaint: CHEST PAIN Time Seen by Provider: 05/17/19 18:05 Source: patient Mode of arrival: ambulatory Limitations: no limitations History of Present Illness Provider complaint: Chest pain Onset (ago): hour(s) (late morning) Location: chest Severity: similar to prior episodes Pain Consistency: + other (worsening) Maximum Pain Intensity: 8 Quality: + other (pain) Relieved By: + none Exacerbated By: + other (inspiration, lying flat) Associated symptoms: + other (Denies: weight gain); no fever/chills and no na usea/vomiting Treatments prior to arrival: other (nitroglycerin) The patient is a 64 year old male with a history of a cardiac catheterization, Barretts esophagus, hepatitis C, GERD, hypertension, hyperlipidemia, liver transplant, bowel resection, and biliary duct stents who presents to the Emergency Room with complaints of worsening chest pain starting late this morning. The patient reports that he was resting after finishing cleaning the house when he started experiencing chest pain. He states that his pain worsens with inspiration and when he lies flat. He notes that this pain is similar to the pain he felt when he was transferred to from the ED to [facility] for a cardiac catheterization on May 09. He explains that he took 6 doses of Nit roglycerin and Lasix PO throughout the day with no relief. The patient otherwise denies any fevers, chills, nausea, vomiting, and weight gain. He also reports no history of DVTs and PEs. He states that he takes Metoprolol but does not take any blood thinners. Home Medications Home Medications Medication Instructions Recorded Confirmed Type allopurinol 300 mg PO QPM #0 tab 02/27/12 05/17/19 History trazodone 100 mg PO HS #0 tab 02/27/12 05/17/19 History albuterol sulfate 2 puff INHALATION Q4 PRN #0 01/01/17 05/17/19 History sirolimus 1 mg PO QPM #0 01/01/17 05/17/19 History atorvastatin 40 mg PO QPM #0 tab 01/09/18 05/17/19 History desipramine 25 mg PO QPM #0 01/09/18 05/17/19 History esomeprazole magnesium [Nexium] 40 mg PO BID #0 cap 01/09/18 05/17/19 History fexofenadine 180 mg PO DAILY PRN #0 tab 01/09/18 05/17/19 History mometasone 1 spray INTRANASAL DAILY PRN #0 01/09/18 05/17/19 History mycophenolate mofetil 500 mg PO QPM #0 tab 01/09/18 05/17/19 History pseudoephedrine-guaifenesin 1 tab PO Q12H PRN #0 tab 01/09/18 05/17/19 History aspirin [Ecotrin Low Strength] 81 mg PO QAM #0 tab 05/07/19 05/17/19 Rx magnesium salicylate 580 mg PO QPM 05/07/19 05/17/19 History nitroglycerin [Nitro-Bid] 1 inch EXT Q6H #0 g 05/07/19 05/17/19 Rx nitroglycerin [Nitrostat] 0.4 mg SUBLINGUAL UD PRN #1 tab 05/07/19 05/17/19 Rx furosemide 80 mg PO DAILY 05/17/19 05/17/19 History metoprolol succinate 25 mg PO DAILY 05/17/19 05/17/19 History Allergies Allergy/AdvReac Type Severity Reaction Status Date / Time ketamine Allergy Intermediate hallucinati Verified 05/07/19 06:04 ons midazolam Allergy Intermediate headaches/ Verified 05/07/19 06:04 "hangover" diphenhydramine AdvReac Intermediate restless Verified 05/07/19 06:04 prochlorperazine AdvReac Intermediate ANXIETY Verified 05/07/19 06:04 Past Med/Surg History Medical History Arm pain (Chronic) HAS [employer]ORS[employer] FOR PAIN CONTROL 2007 Arthritis (Chronic) Oquendo's esophagus (Chronic) Chronic hepatitis C with cirrhosis (Chronic) Femur fracture, left (Chronic) REPAIRED GERD (gastroesophageal reflux disease) (Chronic) Gout (Chronic) HTN (hypertension) (Chronic) Hyperlipemia (Chronic) Surgical History H/O rhinoplasty (Chronic) History of biliary duct stent placement (Chronic) BILE DUCT STENTS INSERTED MULTIPLE TIMES History of bowel resection (Chronic) History of liver transplant (Chronic) 1993 [facility], 2005 [facility] History of nasal septoplasty (Chronic) X 2 History of open reduction and internal fixation (ORIF) procedure (Chronic) left femur Hx of tonsillectomy (Chronic) Hx of tooth extraction (Chronic) S/P cardiac catheterization Family History Other Diabetes Heart disease Social History Preferred Language: Palauan Communication Ability: Effective Beliefs That Will Affect Care: None Current Living Situation: Spouse Feels Safe at Home: Yes Smoking Status: Never smoker Second Hand Exposure: No ; Hx Alcohol Use: Yes Alcohol type: beer Hx Substance Use: No Review of Systems See HPI for pertinent positives & negatives. and A total of 10 systems reviewed and were otherwise negative Physical Exam Vital Signs Vital Signs - 24 hr 05/17/19 17:55 05/17/19 18:02 05/17/19 18:13 Temperature 36.7 C Temperature Source Oral Pulse Rate 58 L 91 H Pulse Rate [Left] Pulse Rate from SpO2 Sensor Pulse Rhythm [Left] Respiratory Rate 24 27 H Respiratory Effort / Characteristics Respiratory Depth Shallow Respiratory Pattern Blood Pressure 118/75 Blood Pressure [Right Arm] Blood Pressure Mean 89 Blood Pressure Mean [Right Arm] Blood Pressure Position [Right Arm] Pulse Oximetry 94 Oxygen Delivery Method Sepsis Recent Fever Within 48 Hours No Sepsis Action Taken by Nursing No Action Required 05/17/19 18:20 05/17/19 19:00 05/17/19 20:30 Temperature Temperature Source Pulse Rate 92 H 87 56 L Pulse Rate [Left] Pulse Rate from SpO2 Sensor 69 43 L 76 Pulse Rhythm [Left] Respiratory Rate 21 20 12 Respiratory Effort / Characteristics Respiratory Depth Respiratory Pattern Blood Pressure 121/80 Blood Pressure [Right Arm] Blood Pressure Mean 88 Blood Pressure Mean [Right Arm] Blood Pressure Position [Right Arm] Pulse Oximetry 96 95 94 Oxygen Delivery Method Sepsis Recent Fever Within 48 Hours Sepsis Action Taken by Nursing 05/17/19 20:31 Temperature Temperature Source Pulse Rate 90 Pulse Rate [Left] 89 Pulse Rate from SpO2 Sensor 86 Pulse Rhythm [Left] Regular Respiratory Rate 23 Respiratory Effort / Characteristics Non-Labored Spontaneous Respiratory Depth Normal Respiratory Pattern Regular Blood Pressure 126/89 Blood Pressure [Right Arm] 126/89 Blood Pressure Mean 97 Blood Pressure Mean [Right Arm] 101 Blood Pressure Position [Right Arm] Sitting Pulse Oximetry 95 Oxygen Delivery Method Room Air Sepsis Recent Fever Within 48 Hours Sepsis Action Taken by Nursing GENERAL: The patient is awake and alert. He is somewhat anxious and uncomfortable appearing. EYES: The conjunctivae are clear. The pupils are round and reactive. EARS, NOSE, MOUTH AND THROAT: The nose is without any evidence of any deformity. Mucous membranes are moist tongue is midline NECK: The neck is nontender and supple. RESPIRATORY: Normal respiratory effort is noted there is no evidence of wheezing rhonchi or rales CARDIOVASCULAR: Ectopy was noted to auscultation. No definite murmur or rub was noted. GASTROINTESTINAL: The abdomen is soft. The abdomen is nontender. MUSCULOSKELETAL/EXTREMITIES: There is no evidence of gross deformity full range of motion is noted in the hips and shoulders SKIN: There is no obvious evidence of any rash. There are no petechiae, pallor or cyanosis noted. NEUROLOGIC: Patient is awake alert and oriented x3. Course Course 1818: The patient was evaluated in room C10, and a complete history and physical examination were performed. 2037: I reviewed the patient's case with Dr. Dennis - Dory Hogan. Dr. Dennis will evaluate the patient for further management. Consultations Consultation #1: I reviewed the patient's case with Dr. Dennis - Dory Hogan. Dr. Dennis will evaluate the patient for further management. Time: 20:38 Administered Medications Morphine Sulfate (Morphine Sulfate) 4 mg IV Q15M PRN PRN Reason: Pain Stop: 05/31/19 18:21 Last Admin: 05/17/19 21:06 Dose: 4 mg Documented by: [id number] Admin: 05/17/19 19:54 Dose: 4 mg Documented by: [id number] Admin: 05/17/19 18:45 Dose: 4 mg Documented by: [id number] Discontinued Medications Ondansetron HCl (Zofran) 4 mg IV NOW STA Stop: 05/17/19 18:23 Last Admin: 05/17/19 18:46 Dose: 4 mg Documented by: [id number] Medical Decision Making Differential Diagnosis Differential diagnosis includes: cardiac ischemia, aortic dissection, pulmonary embolism, pneumonia, pneumothorax, musculoskeletal, infections, pericarditis, myocarditis, esophageal rupture, gastrointestinal, as well as others were entertained. Medical Records Attestation: I reviewed the patient's medical records. Home Medications Current Medication List: was personally reviewed by me Laboratory Data Attestation: I reviewed the patient's lab results. Result diagrams: 05/17/19 18:20 05/17/19 18:20 Lab Results 05/17/19 05/17/19 05/17/19 Range/Units 18:20 18:20 18:20 WBC 12.76 H (4.8-10.8) K/uL RBC 4.33 L (4.7-6.1) M/uL Hgb 11.5 L (14.0-18.0) g/dL Hct 35.5 L (42-52) % MCV 82.0 (80-100) fL MCH 26.6 (25-34) pg MCHC 32.4 (32-36) g/dL RDW Std Deviation 43.5 (36.4-46.3) fL RDW Coeff of Vicky 14.4 (11.5-14.5) % Plt Count 434 H (130-400) K/uL MPV 9.4 (7.4-10.4) fL Immature Gran % (Auto) 0.3 % Neut % (Auto) 77.0 % Lymph % (Auto) 12.5 % [place] % (Auto) 8.2 % Eos % (Auto) 1.8 % Baso % (Auto) 0.2 % Immature Gran # (Auto) 0.04 H (0.00-0.02) K/uL Neut # (Auto) 9.83 H (1.4-6.5) K/uL Lymph # (Auto) 1.59 (1.2-3.4) K/uL [place] # (Auto) 1.04 H (0.11-0.59) K/uL Eos # (Auto) 0.23 (0-0.5) K/uL Baso # (Auto) 0.03 (0-0.2) K/uL ESR 81 H (0-14) mm/hr PT 10.4 (9.0-12.0) Seconds INR 1.0 (0.9-1.1) APTT 25.4 (21.0-31.0) Seconds PTT Ratio 0.9 D-Dimer 4460 H* (0-500) ug/L FEU Sodium (136-145) mmol/L Potassium (3.5-5.1) mmol/L Chloride (98-107) mmol/L Carbon Dioxide (21-32) mmol/L Anion Gap (3-11) BUN (7-18) mg/dl Creatinine (0.6-1.4) mg/dl Est Cr Clr Drug Dosing ml/min Est GFR ( Amer) Est GFR (Non-Af Amer) BUN/Creatinine Ratio (10-20) Glucose (70-99) mg/dl Calcium (8.5-10.1) mg/dl Total Bilirubin (0.2-1) mg/dl AST (15-37) U/L ALT (12-78) U/L Alkaline Phosphatase (45-117) U/L Total Creatine Kinase (39-308) U/L CK-MB (CK-2) (0.5-3.6) ng/ml CK/CKMB % Calc (0-3.0) Troponin I (0-0.045) ng/ml C-Reactive Protein (0-0.29) mg/dl Total Protein (6.4-8.2) gm/dl Albumin (3.4-5.0) gm/dl Globulin (2.5-4.0) gm/dl Albumin/Globulin Ratio (0.9-2) Lipase (73-393) U/L Urine Color Urine Appearance (Clear) Urine pH (4.5-7.5) Ur Specific [place] (1.000-1.030) Urine Protein (Negative) Urine Glucose (UA) (Negative) Urine Ketones (Negative) Urine Blood (Negative) Urine Nitrite (Negative) Urine Bilirubin (Negative) Urine Urobilinogen (Negative) Ur Leukocyte Esterase (Negative) Urine WBC (Auto) (0-5) /hpf Urine RBC (Auto) (0-4) /hpf U Hyaline Cast (Auto) (0-5) /lpf U Epithel Cells (Auto) (0-5) /lpf Urine Bacteria (Auto) (Negative) 05/17/19 05/17/19 Range/Units 18:20 20:35 WBC (4.8-10.8) K/uL RBC (4.7-6.1) M/uL Hgb (14.0-18.0) g/dL Hct (42-52) % MCV (80-100) fL MCH (25-34) pg MCHC (32-36) g/dL RDW Std Deviation (36.4-46.3) fL RDW Coeff of Vicky (11.5-14.5) % Plt Count (130-400) K/uL MPV (7.4-10.4) fL Immature Gran % (Auto) % Neut % (Auto) % Lymph % (Auto) % [place] % (Auto) % Eos % (Auto) % Baso % (Auto) % Immature Gran # (Auto) (0.00-0.02) K/uL Neut # (Auto) (1.4-6.5) K/uL Lymph # (Auto) (1.2-3.4) K/uL [place] # (Auto) (0.11-0.59) K/uL Eos # (Auto) (0-0.5) K/uL Baso # (Auto) (0-0.2) K/uL ESR (0-14) mm/hr PT (9.0-12.0) Seconds INR (0.9-1.1) APTT (21.0-31.0) Seconds PTT Ratio D-Dimer (0-500) ug/L FEU Sodium 138 (136-145) mmol/L Potassium 3.2 L (3.5-5.1) mmol/L Chloride 101 (98-107) mmol/L Carbon Dioxide 28 (21-32) mmol/L Anion Gap 9.0 (3-11) BUN 70 H (7-18) mg/dl Creatinine 2.81 H (0.6-1.4) mg/dl Est Cr Clr Drug Dosing 25.4 ml/min Est GFR ( Amer) 26.1 Est GFR (Non-Af Amer) 22.5 BUN/Creatinine Ratio 25.0 H (10-20) Glucose 199 H (70-99) mg/dl Calcium 9.0 (8.5-10.1) mg/dl Total Bilirubin 0.2 (0.2-1) mg/dl AST 20 (15-37) U/L ALT 20 (12-78) U/L Alkaline Phosphatase 134 H (45-117) U/L Total Creatine Kinase 134 (39-308) U/L CK-MB (CK-2) 2.9 (0.5-3.6) ng/ml CK/CKMB % Calc 2.2 (0-3.0) Troponin I 0.017 (0-0.045) ng/ml C-Reactive Protein 1.44 H (0-0.29) mg/dl Total Protein 7.7 (6.4-8.2) gm/dl Albumin 3.3 L (3.4-5.0) gm/dl Globulin 4.4 H (2.5-4.0) gm/dl Albumin/Globulin Ratio 0.7 L (0.9-2) Lipase 153 (73-393) U/L Urine Color Yellow Urine Appearance Clear (Clear) Urine pH 5.0 (4.5-7.5) Ur Specific [place] 1.016 (1.000-1.030) Urine Protein 2+ H (Negative) Urine Glucose (UA) Trace H (Negative) Urine Ketones Negative (Negative) Urine Blood Trace H (Negative) Urine Nitrite Negative (Negative) Urine Bilirubin Negative (Negative) Urine Urobilinogen Negative (Negative) Ur Leukocyte Esterase Negative (Negative) Urine WBC (Auto) 0 (0-5) /hpf Urine RBC (Auto) 0-4 (0-4) /hpf U Hyaline Cast (Auto) 1-5 (0-5) /lpf U Epithel Cells (Auto) 0-5 (0-5) /lpf Urine Bacteria (Auto) Negative (Negative) Imaging Data Radiologist's Impression: Radiology results as stated below per my review and the radiologist's interpretation: XR chest 1V portable HISTORY: 64 years-old Male Chest Pain acute atypical chest pain COMPARISON: Chest radiograph 05/07/2019, 01/16/2018. TECHNIQUE: Portable AP view of the chest FINDINGS: Cardiac silhouette is enlarged, unchanged. Mild interstitial opacities have improved from prior, however appear to be progressed from 01/16/2018 exam. No pneumothorax, large pleural effusion or overt pulmonary edema. A battery pack device projects over the left chest wall as well as left chest wall and left axillary surgical clips. Degenerative changes of the shoulders and spine. IMPRESSION: 1. Cardiomegaly without overt pulmonary edema. 2. Mild bilateral interstitial opacities have moderately improved from 05/07/2019. Pulmonary vascular congestion versus interstitial pneumonitis con sidered. The above report was generated using voice recognition software. It may contain grammatical, syntax or spelling errors. Electronically signed by: Kristian Erickson M.D. 05/17/2019 6:32 PM ECG Data Attestation: I personally reviewed and interpreted this ECG as follows: Indication: + chest pain Rate (beats per minute): 93 Rhythm: + sinus rhythm ECG ST segments: + T-wave inversions (nonspecific) ECG Findings: + PVCs (frequent) and + Other (LVH noted by voltage criteria) Comparison ECG Date: from (05/07/19) Change: no significant change Blood Pressure Blood Pressure Findings: Elevated blood pressure Blood Pressure Disposition: further management by hospitalist [facility] Narrative The patient is a 64-year-old male who presented to the emergency department for an evaluation of chest pain. The patient describes chest pain which is sharp in the anterior. The pain does not radiate and does not appear to be exertional. The pain is worsened with lying flat. The pain is also worsened with deep inspiration. I discussed the patient's laboratory and radiographic studies with him. He was reevaluated multiple times. The patient was recently in our facility and was transferred to [facility] because of an elevated troponin with his chest pain. At this time the patient did have an elevated d- dimer so Dopplers of the lower extremities were obtained. I will defer CAT scan of the chest at this time given the patient's elevated creatinine. I discussed the patient's condition with him. Given his comorbidities I do feel that he may be at high risk so I discussed his case with the on-call [facility] hospitalist group. They have agreed to evaluate patient in the emergency department for further management disposition. Impression & Plan Chest pain, Pleurisy, PVCs (premature ventricular contractions) Discharge Plan Visit Data Chief Complaint: Chest Pain Stated Complaint: CHEST PAIN ED Provider: Dorian Suazo Discharge Problem: Chest pain, Pleurisy, PVCs (premature ventricular contractions) Patient Disposition: Admitted As Inpatient Forms Stand Alone Forms: Call Back Authorization, My [facility] My [facility] Direct Prescriptions Prescriptions: No Action trazodone 50 mg Tablet 100 mg PO HS Qty: 0 RF: 0 allopurinol 300 mg Tablet 300 mg PO QPM Qty: 0 RF: 0 sirolimus 1 mg Tablet 1 mg PO QPM Qty: 0 RF: 0 albuterol sulfate 90 mcg/actuation Aerosol Powdr Breath Activated 2 puff INHALATION Q4 PRN (Reason: SOB) Qty: 0 RF: 0 atorvastatin 40 mg Tablet 40 mg PO QPM Qty: 0 RF: 0 desipramine 25 mg Tablet 25 mg PO QPM Qty: 0 RF: 0 fexofenadine 180 mg Tablet 180 mg PO DAILY PRN (Reason: Allergy Symptoms) Qty: 0 RF: 0 mycophenolate mofetil 500 mg Tablet 500 mg PO QPM Qty: 0 RF: 0 pseudoephedrine-guaifenesin 120-1,200 mg Tablet Extended Release 12 Hr 1 tab PO Q12H PRN (Reason: Allergy Symptoms) Qty: 0 RF: 0 esomeprazole magnesium [Nexium] 40 mg Capsule,Delayed Release(Dr/Ec) 40 mg PO BID Qty: 0 RF: 0 mometasone 50 mcg/actuation [place],Non-Aerosol 1 spray INTRANASAL DAILY PRN (Reason: Allergy Symptoms) Qty: 0 RF: 0 magnesium salicylate 580 (467) mg Tablet 580 mg PO QPM RF: 0 aspirin [Ecotrin Low Strength] 81 mg Tablet,Delayed Release (Dr/Ec) 81 mg PO QAM Qty: 0 RF: 0 nitroglycerin [Nitrostat] 0.4 mg Tablet, Sublingual 0.4 mg sublingual UD PRN (Reason: chest pain) Qty: 1 RF: 0 Nitro-Bid 2 % Ointment 1 inch EXT Q6H Qty: 0 RF: 0 furosemide 80 mg tablet 80 mg PO DAILY RF: 0 metoprolol succinate 25 mg tablet extended release 24 hr 25 mg PO DAILY RF: 0 Referrals Referrals: Terrie Mckinney MD [Primary Care Provider] - Discharge Problem: Chest pain Qualifiers: Chest pain type: unspecified Qualified Code(s): R07.9 - Chest pain, unspecified The scribe's documentation has been prepared under my direction and personally reviewed by me in its entirety. I confirm that the note above accurately reflects all work, treatment, procedures, and medical decision making performed by me.
[2019-05-17 18:30] LABS: Basophils # (auto) 0.03 K/uL (0-0.2); Basophils % (auto) 0.2 %; Eosinophils # (auto) 0.23 K/uL (0-0.5); Eosinophils % (auto) 1.8 %; Hematocrit (blood only) 35.5 % (42-52); Hemoglobin 11.5 g/dL (14.0-18.0); Immature Granulocytes # (auto) 0.04 K/uL (0.00-0.02); Immature Granulocytes % (auto) 0.3 %; Lymphocytes # (auto) 1.59 K/uL (1.2-3.4); Lymphocytes % (auto) 12.5 %; Mean Corpuscular Hemoglobin 26.6 pg (25-34); Mean Corpuscular Hgb Conc 32.4 g/dL (32-36); Mean Platelet Volume 9.4 fL (7.4-10.4); Monocytes # (auto) 1.04 K/uL (0.11-0.59); Monocytes % (auto) 8.2 %; Neutrophils # (auto) 9.83 K/uL (1.4-6.5); Platelet Count 434 K/uL (130-400); RDW Coefficient of Variation 14.4 % (11.5-14.5); RDW Standard Deviation 43.5 fL (36.4-46.3); Red Blood Count 4.33 M/uL (4.7-6.1); White Blood Count 12.76 K/uL (4.8-10.8)
--- NOTE | 2019-05-17 18:34 | XRay Report ---
XR chest 1V portable HISTORY: 64 years-old Male Chest Pain acute atypical chest pain COMPARISON: Chest radiograph 05/07/2019, 01/16/2018. TECHNIQUE: Portable AP view of the chest FINDINGS: Cardiac silhouette is enlarged, unchanged. Mild interstitial opacities have improved from prior, patterson amanda appear to be progressed from 01/16/2018 exam. No pneumothorax, large pleural effusion or overt pul monary edema. A battery pack device projects over the left chest wall as well as left chest wall and left axillary surgical clips. Degenerative changes of the shoulders and spine. IMPRESSION: 1. Cardiomegaly without overt pulmonary edema. 2. Mild bilateral interstitial opacities have moderately improved from 05/07/2019. Pulmonary vascular congestion versus interstitial pneumonitis considered. The above report was generated using voice recognition software. It may contain grammatical, syntax o r spelling errors. Electronically signed by: Kristian Erickson M.D. 05/17/2019 6:32 PM
[2019-05-17] MEDS: MoRPHine SULFATE 4 MG/ML 1 ML CARP\\VIAL IV PRN ×3 (18:45→21:06)
[2019-05-17 18:54] LABS: Albumin Level 3.3 gm/dl (3.4-5.0); Creatinine Clr Calc Pharmacy 25.4 ml/min; Est GFR (African American) 26.1; Est GFR (Non-African American) 22.5; Potassium 3.2 mmol/L (3.5-5.1)
[2019-05-17 19:00] LABS: Albumin Globulin Ratio 0.7 (0.9-2); Bilirubin,Total 0.2 mg/dl (0.2-1); C Reactive Protein 1.44 mg/dl (0-0.29); Creatine Kinase MB 2.9 ng/ml (0.5-3.6); Globulin 4.4 gm/dl (2.5-4.0); Total Protein 7.7 gm/dl (6.4-8.2); Troponin I 0.017 ng/ml (0-0.045)
[2019-05-17 19:08] LABS: Partial Thromboplastin Ratio 0.9; Partial Thromboplastin Time 25.4 Seconds (21.0-31.0); Prothrombin Time 10.4 Seconds (9.0-12.0)
[2019-05-17 19:15] LABS: D Dimer 4460 ug/L FEU (0-500)
--- NOTE | 2019-05-17 20:27 | Ultrasound Report ---
BILATERAL LOWER EXTREMITY VENOUS DOPPLER HISTORY: Acute chest pain CP COMPARISON STUDY: None. FINDINGS: There is normal compressibility, flow, and augmentation within the bilateral lower extremit y deep venous systems. Right Fontanez's cyst, 3.3 x 1.0 x 2.3 cm. IMPRESSION: No DVT within the right or left lower extremity. Electronically signed by: Kristian Erickson M.D. 05/17/2019 8:26 PM
[2019-05-17 21:03] LABS: Appearance Urine Clear (Clear); Bacteria Urine Automated Negative (Negative); Bilirubin Urine Negative (Negative); Blood Urine Trace (Negative); Color Urine Yellow; Epithelial Cell Urine Auto 0-5 /lpf (0-5); Glucose Urine UA Trace (Negative); Ketones Urine Negative (Negative); Leukocyte Esterase Urine Negative (Negative); Nitrite Urine Negative (Negative); Protein Urine 2+ (Negative); RBC Urine Automated 0-4 /hpf (0-4); Specific Gravity Urine 1.016 (1.000-1.030); Urobilinogen Urine Negative (Negative); WBC Urine Automated 0 /hpf (0-5)
[2019-05-17] MEDS ORDERED: NITROGLYCERIN SL 0.4 MG/TAB TAB SL PRN ×2 (22:41)
[2019-05-17] MEDS ORDERED: POLYETHYLENE (MIRALAX) 17 GM PACK PO PRN (22:41)
[2019-05-17] MEDS ORDERED: FEXOFENADINE HCL 180 MG TAB PO PRN (22:41)
[2019-05-17] MEDS ORDERED: ALBUTEROL HFA 8 GM INHALER INH PRN (23:03)
[2019-05-17] MEDS ORDERED: GLUCAGON FOR INJ 1 MG VIAL SQ PRN (23:15)
[2019-05-17] MEDS ORDERED: GLUCOSE 40% GEL 15 GM TUBE PO PRN (23:15)
[2019-05-17] MEDS ORDERED: CARBOHYDRATES FOR HYPOGLYCEMIA PO PRN (23:15)
[2019-05-17] MEDS ORDERED: DEXTROSE 50% 50 ML SYRINGE IV PRN (23:15)
[2019-05-17] MEDS ORDERED: GLUCOSE 10 TABS/TUBE PO PRN (23:15)
[2019-05-17] MEDS: PANTOprazole 40 MG TAB PO SCH (23:33)
[2019-05-17] MEDS: MoRPHine SULFATE 2 MG/ML CARP IV PRN (23:34)
[2019-05-17] MEDS: ONDANSETRON INJ 2 MG/ML 2 ML VIAL IV PRN (23:34)
--- NOTE | 2019-05-18 00:49 | History and Physical Report ---
DATE OF ADMISSION: 05/17/2019 CHIEF COMPLAINT: Chest pain. HISTORY OF PRESENT ILLNESS: This is 64-year-old male with past medical history significant for hyperlipidemia, type 2 diabetes, non-ST elevated myocardial infarction, systolic CHF with EF of around 20% to 25%, hypertension, history of peptic ulcer, history of biliary stenosis, status post stent placement, chronic kidney disease stage III, baseline creatinine around 2, gout, degenerative disk disease, hip pain, depression, ventral hernia without obstruction, history of hepatitis C with cirrhosis status post liver transplant x2, first in 1993 and then most recent in 2004, history of duodenal ulcer with bleeding, GERD. The patient was recently in the hospital on 05/07/2019 with non-ST elevated TN and acute decompensated systolic CHF and acute respiratory failure with hypoxia, requiring 3 liters of oxygen and elevated ESR and CRP and lactic acid was 2.4. At that time, he was transferred to [facility] for management of acute CHF and also possible myopericarditis and hypertensive urgency and given the history of liver transplant .At [facility], the patient underwent Lexiscan stress echo which showed global hypokinesia and inferior akinesis with EF of around 28% and is status post cardiac catheterization on 05/09/2019, which shows nonobstructive CAD with 60% first OM stable stenosis, chronic appearing stenosis, LAD has 40% mid stenosis and RCA angiographically normal. He was started on beta heber. Because of renal dysfunction, was not started on ACEI until seen by nephrology. He also had followup with cardiology on 05/15/2019 and Lasix and beta heber was continued and there is a plan for EP consultation to consider PVC ablation and to plan for echocardiogram in 10-12 weeks for evidence-based followup after medical therapy and possible ICD placement.. The patient says today afternoon after he cleaned his house and mopped his house and did laundry, he noticed left-sided chest pain, pressure-like feeling, sharp pains, moderate in severity, no radiation, not associated with any shortness of breath or sweating or nausea or dizziness. It was constant pain. At 1:00 p.m., he also took his dog for a walk with his , but he could not do much walking because of this chest pain. He took 4-5 nitro, but it did not help with this pain, and also the pain is more with positional changes.Right now in the ER, he is lying with bed elevation and that is helping with his pain and if he leans forward, takes deep breath, the pain is more. Morphine helped his pain in the ER. Currently resting comfortably and hemodynamically stable. Denies any headache. No earaches, no runny nose. Vision is okay. No sore throat, no cough, no fever, no chills, no dysphagia. Appetite is okay. Sleeps okay. No nausea, no vomiting. Has some epigastric abdominal discomfort that is chronic. No diarrhea, no constipation, no blood in stool or black stools. No hematuria or burning micturition, no swelling in the legs currently. Otherwise he ambulates okay except for today he had some pain while he was ambulating. Currently resting comfortable and hemodynamically stable. ALLERGIES: BENADRYL, COMPAZINE, KETAMINE. PAST MEDICAL HISTORY: As mentioned above. PAST SURGICAL HISTORY: Colonoscopies; left heart catheterization recently; EGDs, multiple; multiple ERCPs; gallbladder removed with second liver transplant, first liver transplant in 1993, second liver transplant in 2004, Gastric Neurostim device; ; bowel resection for MSV thrombosis; was on Coumadin for the most recent transplant; brachioplasty; repair of inguinal hernia bilaterally; removal of implanted spinal neuro stimulator; percutaneous fixation of proximal humeral fracture performed at [facility] [place], upper endoscopy with biopsy, vasectomy. MEDICATIONS: The patient currently on atorvastatin 40 mg p.o. daily, aspirin 81 mg p.o. daily, Lasix 80 mg p.o. daily, Toprol-XL 25 mg p.o. daily, nitroglycerin 0.4 mg sublingual p.r.n., esomeprazole 40 mg p.o. b.i.d., sirolimus 1 mg p.o. daily, allopurinol 300 mg p.o. daily, desipramine 25 mg p.o. at bedtime, Adilia 180 mg p.o. daily p.r.n., mometasone furoate 50 mcg 2 sprays into each nostril daily, CellCept 500 mg p.o. daily, trazodone 100 mg p.o. at bedtime, amoxicillin 1 hour prior to dental appointment, magnesium 500 mg t.i.d. with food. FAMILY HISTORY: Significant for maternal grandmother had ovarian cancer; mother had lung cancer, was a smoker; father had diabetes and CHF, TN and CAD, was a smoker too. SOCIAL HISTORY: . No smoking. Alcohol 2-3 times a week. No drug use. REVIEW OF SYSTEMS: As per HPI. Rest of review of systems negative. PHYSICAL EXAMINATION: GENERAL: The patient is of moderate build, not in acute distress. VITAL SIGNS: Temperature 36.7, pulse 90, respiratory rate 23, blood pressure 126/89, oxygen 95% on room air. HEENT: No pallor, no icterus. Pupils equal, round, reactive to light. NECK: No JVD, no neck masses. CARDIOVASCULAR: S1, S2 heard, regular rate and rhythm, no murmur, no gallop. RESPIRATORY SYSTEM: Normal AP diameter. Mild bibasilar crackles. No wheezing. No accessory muscle use. GASTROINTESTINAL: Abdomen is soft. Bowel sounds present. Epigastric tenderness present. No guarding, no rigidity, no distention. CENTRAL NERVOUS SYSTEM: Cranial nerves II-XII grossly intact, nonfocal. EXTREMITIES: No edema, no erythema. LABORATORY DATA: WBC 12, hemoglobin 11.5, hematocrit 35.5, platelets 434. PT 10.4, INR 1, APTT 25.4. D-dimer 4460. Sodium 138, potassium 3.2, chloride 101, bicarbonate 28, BUN 70, creatinine 2.8, serum glucose 199, calcium 9, total bilirubin 0.2, AST 20, ALT 20, alkaline phosphatase 134. Troponin 1 of 0.017. C-reactive protein 1.44, lipase 153. Urinalysis, trace glucose and trace blood. IMAGING DATA: Chest x-ray, cardiomegaly with overt pulmonary edema, mild bilateral interstitial opacities, have moderately improved from 05/07/2019. Pulmonary vascular congestion versus interstitial pneumonitis, consider. Venous Doppler showed no DVT within the bilateral lower extremity. ASSESSMENT AND PLAN: This is a 64-year-old male who presents with chest pain. 1. Chest pain, more with taking deep breath and also more with leaning forward, mostly could be pericarditis or pleuritis. Recently came with chest pain on 05/07/2019 and was transferred to [facility] for further management. At that time he was in acute CHF sytolic new onset. At [facility] status post stress echo which showed global hypokinesia with inferior akinesis, EF of around 20% to 25%, status post cardiac catheterization, which showed nonobstructive coronary artery disease and also started on Lasix and Toprol and did fine and was discharged. Had a followup appointment on 05/15/2019 with cardiology, and at that time he did not have any chest pain. Currently presents with chest pain. EKG and initial troponin negative. Nitro didn't helped pain . Morphine relived pain.We will observe in tele floor, serial cardiac enzymes. As the patient recently had a cardiac catheterization and echo, further echocardiogram as per cardiology. Consult cardiology in the a.m. Will keep n.p.o. after midnight. IV morphine p.r.n. His D-dimer is elevated, but lower extremity Doppler is negative. Could not do CT of chest because of renal function, but patient does not have any shortness of breath. Pain is more positional. If there is any concern, can do VQ scan. Monitor in tele floor. 2. Acute kidney injury on chronic kidney disease stage III, baseline creatinine of 2, currently with creatinine of 2.8, Recent out patient creatinine was 2.5. Recently started on Lasix 80 mg daily, which we will hold, and consult nephrology in a.m. for further recommendation or adjustment of diuretics. 3. Chronic systolic congestive heart failure with EF of around 20% to 25%, recently started on Toprol-XL and diuretics. Diuretics are currently on hold because of acute kidney injury. Will Monitor for any volume overload. Restart diuretics as per cardiology and nephrology. 4. Hypokalemia. We will replace. 5. History of gastroesophageal reflux disease. Had multiple EGDs in the past, on Nexium 40 b.i.d., has some epigastric tenderness with question of some rebound tenderness, but patient does not have other definitive peritoneal signs. Seems comfortable. If any worsening symptoms, will consult GI. 6. History of hepatitis C and had first liver transplant in 1993 and second in 2004, on CellCept, and sirolimus. Sirolimus level was low at 2.9 at [facility] recently when admitted there. He is supposed to follow with hepatology. 7. Hypertension, on Toprol-XL. Restarted recently. Lisinopril was stopped by nephrology in recent past. We will monitor the blood pressure. 8. Hyperlipidemia, on statin. 9. Nonobstructive coronary artery disease, on statin, aspirin, and Toprol-XL. 10. Gout, on allopurinol. 11. Type 2 diabetes, controlled with diet and exercise. HbA1c 6.5 last in March 2019. We will place him on insulin sliding scale and ADA diet. 12. History of duodenal ulcer, on PPI. 13. Deep vein thrombosis prophylaxis, sequential compression devices for now. 14. Disposition: Observation in tele floor. Expect to discharge home and follow with family doctor and cardiology and GI. Level 1 full code. MTDD
[2019-05-18] MEDS: MoRPHine SULFATE 2 MG/ML CARP IV PRN ×3 (01:45→07:49)
[2019-05-18 05:38] LABS: Basophils # (auto) 0.01 K/uL (0-0.2); Basophils % (auto) 0.1 %; Eosinophils # (auto) 0.15 K/uL (0-0.5); Eosinophils % (auto) 1.5 %; Hematocrit (blood only) 34.9 % (42-52); Hemoglobin 11.4 g/dL (14.0-18.0); Immature Granulocytes # (auto) 0.04 K/uL (0.00-0.02); Immature Granulocytes % (auto) 0.4 %; Lymphocytes # (auto) 1.46 K/uL (1.2-3.4); Lymphocytes % (auto) 14.3 %; Mean Corpuscular Hemoglobin 26.8 pg (25-34); Mean Corpuscular Hgb Conc 32.7 g/dL (32-36); Mean Corpuscular Volume 82.1 fL (80-100); Mean Platelet Volume 9.2 fL (7.4-10.4); Monocytes # (auto) 0.99 K/uL (0.11-0.59); Monocytes % (auto) 9.7 %; Neutrophils # (auto) 7.59 K/uL (1.4-6.5); Platelet Count 379 K/uL (130-400); RDW Coefficient of Variation 14.6 % (11.5-14.5); RDW Standard Deviation 43.6 fL (36.4-46.3); Red Blood Count 4.25 M/uL (4.7-6.1); White Blood Count 10.24 K/uL (4.8-10.8)
[2019-05-18 06:12] LABS: Calcium 9.1 mg/dl (8.5-10.1); Creatinine Clr Calc Pharmacy 29.4 ml/min; Est GFR (African American) 31.3; Magnesium 2.1 mg/dl (1.8-2.4); Potassium 3.7 mmol/L (3.5-5.1)
[2019-05-18] MEDS ORDERED: INSULIN ASPART 100 UNITS/ML 3 ML PEN SC SCH (07:30)
[2019-05-18] MEDS: ONDANSETRON INJ 2 MG/ML 2 ML VIAL IV PRN (07:50)
--- NOTE | 2019-05-18 08:35 | Hospitalist Progress Note ---
Date of Service May 18, 2019 Assessment & Plan (1) Chest pain: -Recently came with chest pain on 05/07/2019 and was transferred to [facility] in [place] for further management. At that time he was in acute CHF sytolic new onset. At [place] status post stress echo which showed global hypokinesia with inferior akinesis, EF of around 20% to 25%, status post cardiac catheterization, which showed nonobstructive coronary artery disease and also started on Lasix and Toprol and did fine and was discharged. -patient was feeling okay up until yesterday prior to this hospital admission on for non-radiating chest pain of sternal area and left chest -initial cardiac enzymes have been negative and EKG as nonischemic -possibly that patient may have pericarditis versus pericardial effusion -Transthoracic echocardiogram and cardiology consult pending -of note, patient does have elevated D-dimer but lower extremity ultrasound does not show any DVT within the right or left lower extremity and therefor unlikely to have pulmonary embolism, would not pursue CTA chest given poor renal function Chronic systolic congestive heart failure - EF of around 20% to 25% -was recently started on metoprolol and diuretics since evaluation at [facility] in [place] -Diuretics are currently on hold because of acute kidney injury Nonobstructive coronary artery disease -patient denies cardiac stents -continue statin, aspirin, and metoprolol Hypertension -continue metoprolol Acute kidney injury on chronic kidney disease stage III -baseline creatinine of 2.1 to 2.3 -05/17/19 admission creatinine is 2.8 -05/18/19 creatinine downtrended to 2.4 without any IV fluids -patient follows with outpatient nephrology clinic -admitting hospitalist physician had requested nephrology consult Hypokalemia -admission serum potassium is 3.2 -improved after potassium supplementation History of gastroesophageal reflux disease History of duodenal ulcer -Had multiple EGDs in the past -on Protonix medications BID History of hepatitis C and History of Liver Transplant -history of hepatitis C and had first liver transplant in 1993 and second in 2004, on CellCept, and sirolimus. -follows with outpatient gastroenterology/hepatology Type 2 diabetes -controlled with diet and exercise at home -HbA1c 6.5 in March 2019 -insulin sliding scale while in hospital History of gout -on allopurinol. Deep vein thrombosis prophylaxis, sequential compression devices for now. Subjective Patient seen and examined in AM. He reported that he recently gotten morphine and anti-emetic and feeling better. Patient reports recent history of cardiac cath in [facility] and generally feeling okay up until yesterday prior to this hospital admission for non-radiating chest pain of sternal area and left chest. has not vomitted. but feeling nausea at times. Pain is worse when sitting up and leaning forward. breathing on room air. shortness of breath only when feeling sharp pain of the chest Review of Systems Review of Systems: All systems reviewed & are unremarkable except as noted in HPI & below Physical Exam Constitutional: comfortable Eyes: PERRL, conjunctivae normal, anicteric sclerae EOM intact bilaterally ENMT: external ear and nose normal, oropharynx normal Neck: normal visual inspection Respiratory: normal respiratory effort, lungs clear to auscultation Cardiovascular: RRR, no murmur, no edema Gastrointestinal (Abdomen): normal bowel sounds, soft, nontender, no hepatosplenomegaly Musculoskeletal: Head/Neck/Chest: normocephalic and head atraumatic Neurologic: PERRL, EOMI, accommodation nl, no face palsy, no dysarthria CN's II-XI intact bilaterally Psychiatric: A+Ox3, euthymic affect Results & Data Vital Signs (Past 12 Hours) Vital Signs Temp Pulse Pulse Resp BP BP Pulse Ox 05/18/19 04:30 73 109/68 05/18/19 03:55 36.2 C L 68 20 173/103 H 94 05/17/19 22:35 36.3 C L 69 18 118/80 95 05/17/19 22:01 80 15 94 05/17/19 22:00 82 20 113/78 94 05/17/19 21:01 83 19 96 05/17/19 21:00 78 22 136/92 93 05/17/19 20:32 88 22 94 05/17/19 20:31 90 89 23 126/89 126/89 95 (1) Chest pain Chest pain type: unspecified Qualified Code(s): R07.9 - Chest pain, unspecified
[2019-05-18] MEDS: PANTOprazole 40 MG TAB PO SCH (08:54)
[2019-05-18] MEDS ORDERED: ASPIRIN 81 MG ECTAB PO SCH (09:00)
[2019-05-18] MEDS ORDERED: METOPROLOL SUCC 25MG EXT REL TAB PO SCH (09:00)
--- NOTE | 2019-05-18 10:58 | Cardiology Consultation ---
Date of Consultation May 18, 2019 Assessment & Plan (1) Costochondritis: Left fifth and sixth rib stuck in exhalation with reproducible chest pain. This does not represent any cardiac pathology especially given the patient's recent work-up revealing nonobstructive coronary artery disease. I believe the most prudent course of action at this point would be to ask our pain management colleagues to evaluate the patient and likely inject his mediastinum. Ideally NSAIDs would be appropriate for pain control, however, given his ongoing renal impairment they will be avoided at this time. Nursing notes that the patient is asking for morphine exactly every 2 hours along with Zofran exactly every 3 hours on the dot. Would recommend titration of the narcotic. I will order a pain patch to be placed over the site. (2) PVCs (premature ventricular contractions): Known frequent asymptomatic PVCs. The patient is scheduled to see electrophysiology as an outpatient for possible ablation. No further intervention is necessary at this time. (3) Cardiomyopathy: Recently diagnosed nonischemic cardiomyopathy. On appropriate goal-directed medical therapy and would recommend continue his current outpatient medical regimen. Unfortunately, we are limited in medical therapy due to his renal impairment so we will hold off on adding AMY/ARB/aldosterone antagonist. (4) CKD (chronic kidney disease), stage III: Stable Obviously we are avoiding all possible nephrotoxic agents. Its unfortunate that NSAIDs cannot be used for his costochondritis Follow-up with nephrology as an outpatient as scheduled (5) History of liver transplant: Stable as per patient Follows with hepatology as an outpatient History of Present Illness Reason for Consultation: Chest pain Requesting Physician: Dr. Dennis Attending Physician: Humberto Quintero MD History of Present Illness It was my pleasure to see Mr. Lawson in consultation today May 18, 2019. He is a very pleasant 64-year-old gentleman who follows very close with Dr. Penaloza of her cardiology practice. He presented to [facility] on 05/17/2019 with complaints of chest pain. Patient was recently discharged from [facility] in [place] after undergoing an extensive cardiac work-up including cardiac catheterization. At that time his presenting symptoms were chest pain as well. He states that this pain is similar to the pain he had prior to presentation. He notes that he was feeling well after discharge and after about 7 days he was doing an extensive amount of work around his house. He was doing laundry, mopping the floor, sweeping, raking leaves along with a multitude of other physical labor and he suddenly developed chest pain. He describes the pain as a sharp stabbing sensation along his left sternal border. He is able to point to it with 2 fingers and states that it is reproducible with deep inhalation or movement. He notes in particular when he had a rollover for the echocardiogram today having a role in his left side caused a significant amount of pain. He denies any exertional chest discomfort and the pleuritic pain that he has. He also denies expressing shortness of breath, palpitations, lightheadedness, dizziness or syncope. He has been taking his medications as directed without issue. Allergies Allergy/AdvReac Type Severity Reaction Status Date / Time ketamine Allergy Intermediate hallucinati Verified 05/07/19 06:04 ons midazolam Allergy Intermediate headaches/ Verified 05/07/19 06:04 "hangover" diphenhydramine AdvReac Intermediate restless Verified 05/07/19 06:04 prochlorperazine AdvReac Intermediate ANXIETY Verified 05/07/19 06:04 Home Medications Home Medications Medication Instructions Recorded Confirmed Type allopurinol 300 mg PO QPM #0 tab 02/27/12 05/17/19 History trazodone 100 mg PO HS #0 tab 02/27/12 05/17/19 History albuterol sulfate 2 puff INHALATION Q4 PRN #0 01/01/17 05/17/19 History sirolimus 1 mg PO QPM #0 01/01/17 05/17/19 History atorvastatin 40 mg PO QPM #0 tab 01/09/18 05/17/19 History desipramine 25 mg PO QPM #0 01/09/18 05/17/19 History esomeprazole magnesium [Nexium] 40 mg PO BID #0 cap 01/09/18 05/17/19 History fexofenadine 180 mg PO DAILY PRN #0 tab 01/09/18 05/17/19 History mometasone 1 spray INTRANASAL DAILY PRN #0 01/09/18 05/17/19 History mycophenolate mofetil 500 mg PO QPM #0 tab 01/09/18 05/17/19 History pseudoephedrine-guaifenesin 1 tab PO Q12H PRN #0 tab 01/09/18 05/17/19 History aspirin [Ecotrin Low Strength] 81 mg PO QAM #0 tab 05/07/19 05/17/19 Rx magnesium salicylate 580 mg PO QPM 05/07/19 05/17/19 History nitroglycerin [Nitrostat] 0.4 mg SUBLINGUAL UD PRN #1 tab 05/07/19 05/17/19 Rx furosemide 80 mg PO DAILY 05/17/19 05/17/19 History metoprolol succinate 25 mg PO DAILY 05/17/19 05/17/19 History Patient History Medical History Arm pain (Chronic) HAS DORSAL COLUMN STIMULATOR FOR PAIN CONTROL 2007 Arthritis (Chronic) Oquendo's esophagus (Chronic) Chronic hepatitis C with cirrhosis (Chronic) Femur fracture, left (Chronic) REPAIRED GERD (gastroesophageal reflux disease) (Chronic) Gout (Chronic) HTN (hypertension) (Chronic) Hyperlipemia (Chronic) Surgical History H/O rhinoplasty (Chronic) History of biliary duct stent placement (Chronic) BILE DUCT STENTS INSERTED MULTIPLE TIMES History of bowel resection (Chronic) History of liver transplant (Chronic) 1993 Rachel, 2004 [facility] History of nasal septoplasty (Chronic) X 2 History of open reduction and internal fixation (ORIF) procedure (Chronic) left femur Hx of tonsillectomy (Chronic) Hx of tooth extraction (Chronic) S/P cardiac catheterization Family History Other Diabetes Heart disease Social History Preferred Language: Japanese Communication Ability: Effective Lead Shipper Required: No Beliefs That Will Affect Care: None Current Living Situation: Spouse Feels Safe at Home: Yes Safety Concerns: Feels Safe At This Time Smoking Status: Never smoker Second Hand Exposure: No ; Hx Alcohol Use: No Hx Substance Use: No Review of Systems Review of Systems: All systems reviewed & are unremarkable except as noted in HPI & below Physical Exam Physical Exam: General: Awake, alert and oriented x 3. No acute distress. HEENT: Normocephalic, atraumatic. Pupils equal, round and reactive to light and accommodation. Extraocular muscles are intact. Anicteric sclera. Moist mucous membranes. Neck: No JVD. No bruit. Cardiovascular: Regular. Positive S-4. Normal S-1 and S-2. No S-3. No murmurs or rubs. Pulmonary: Clear to auscultation B/L. No rales, rhonchi or wheezing Abdomen: Bowel sounds x 4, soft. No rebound, guarding or tenderness. No organomegaly. Extremities: No clubbing, cyanosis or edema. +2 pedal pulses bilaterally. Skin: Warm and dry. Muscular skeletal: Direct palpation of the left fifth and sixth rib heads noted to be stuck in exhalation. Pain was reproducible with direct palpation. Results & Data Vital Signs (Past 12 Hours) Vital Signs Temp Pulse Resp BP Pulse Ox 05/18/19 08:39 36.4 C L 63 19 118/77 96 05/18/19 04:30 73 109/68 05/18/19 03:55 36.2 C L 68 20 173/103 H 94 Laboratory Results Laboratory Results - last 24 hr 05/17/19 05/17/19 05/17/19 18:20 18:20 18:20 WBC 12.76 H RBC 4.33 L Hgb 11.5 L Hct 35.5 L MCV 82.0 MCH 26.6 MCHC 32.4 RDW Std Deviation 43.5 RDW Coeff of Vicky 14.4 Plt Count 434 H MPV 9.4 Immature Gran % (Auto) 0.3 Neut % (Auto) 77.0 Lymph % (Auto) 12.5 Juncos % (Auto) 8.2 Eos % (Auto) 1.8 Baso % (Auto) 0.2 Immature Gran # (Auto) 0.04 H Neut # (Auto) 9.83 H Lymph # (Auto) 1.59 Juncos # (Auto) 1.04 H Eos # (Auto) 0.23 Baso # (Auto) 0.03 ESR 81 H PT 10.4 INR 1.0 APTT 25.4 PTT Ratio 0.9 D-Dimer 4460 H* Sodium Potassium Chloride Carbon Dioxide Anion Gap BUN Creatinine Est Cr Clr Drug Dosing Est GFR ( Amer) Est GFR (Non-Af Amer) BUN/Creatinine Ratio Glucose POC Glucose Estimat Average Glucose Hemoglobin A1c Calcium Magnesium Total Bilirubin AST ALT Alkaline Phosphatase Total Creatine Kinase CK-MB (CK-2) CK/CKMB % Calc Troponin I C-Reactive Protein Total Protein Albumin Globulin Albumin/Globulin Ratio Lipase Urine Color Urine Appearance Urine pH Ur Specific Carson Urine Protein Urine Glucose (UA) Urine Ketones Urine Blood Urine Nitrite Urine Bilirubin Urine Urobilinogen Ur Leukocyte Esterase Urine WBC (Auto) Urine RBC (Auto) U Hyaline Cast (Auto) U Epithel Cells (Auto) Urine Bacteria (Auto) 05/17/19 05/17/19 05/17/19 18:20 20:35 23:40 WBC RBC Hgb Hct MCV MCH MCHC RDW Std Deviation RDW Coeff of Vicky Plt Count MPV Immature Gran % (Auto) Neut % (Auto) Lymph % (Auto) Juncos % (Auto) Eos % (Auto) Baso % (Auto) Immature Gran # (Auto) Neut # (Auto) Lymph # (Auto) Jun[place] # (Auto) Eos # (Auto) Baso # (Auto) ESR PT INR APTT PTT Ratio D-Dimer Sodium 138 Potassium 3.2 L Chloride 101 Carbon Dioxide 28 Anion Gap 9.0 BUN 70 H Creatinine 2.81 H Est Cr Clr Drug Dosing 25.4 Est GFR ( Amer) 26.1 Est GFR (Non-Af Amer) 22.5 BUN/Creatinine Ratio 25.0 H Glucose 199 H POC Glucose Estimat Average Glucose Hemoglobin A1c Calcium 9.0 Magnesium Total Bilirubin 0.2 AST 20 ALT 20 Alkaline Phosphatase 134 H Total Creatine Kinase 134 CK-MB (CK-2) 2.9 CK/CKMB % Calc 2.2 Troponin I 0.017 < 0.015 C-Reactive Protein 1.44 H Total Protein 7.7 Albumin 3.3 L Globulin 4.4 H Albumin/Globulin Ratio 0.7 L Lipase 153 Urine Color Yellow Urine Appearance Clear Urine pH 5.0 Ur Specific Carson 1.016 Urine Protein 2+ H Urine Glucose (UA) Trace H Urine Ketones Negative Urine Blood Trace H Urine Nitrite Negative Urine Bilirubin Negative Urine Urobilinogen Negative Ur Leukocyte Esterase Negative Urine WBC (Auto) 0 Urine RBC (Auto) 0-4 U Hyaline Cast (Auto) 1-5 U Epithel Cells (Auto) 0-5 Urine Bacteria (Auto) Negative 05/18/19 05/18/19 05/18/19 05:17 05:17 05:17 WBC 10.24 RBC 4.25 L Hgb 11.4 L Hct 34.9 L MCV 82.1 MCH 26.8 MCHC 32.7 RDW Std Deviation 43.6 RDW Coeff of Vicky 14.6 H Plt Count 379 MPV 9.2 Immature Gran % (Auto) 0.4 Neut % (Auto) 74.0 Lymph % (Auto) 14.3 Juncos % (Auto) 9.7 Eos % (Auto) 1.5 Baso % (Auto) 0.1 Immature Gran # (Auto) 0.04 H Neut # (Auto) 7.59 H Lymph # (Auto) 1.46 Juncos # (Auto) 0.99 H Eos # (Auto) 0.15 Baso # (Auto) 0.01 ESR PT INR APTT PTT Ratio D-Dimer Sodium 139 Potassium 3.7 D Chloride 100 Carbon Dioxide 33 H Anion Gap 6.0 BUN 60 H Creatinine 2.42 H D Est Cr Clr Drug Dosing 29.4 Est GFR ( Amer) 31.3 Est GFR (Non-Af Amer) 27.0 BUN/Creatinine Ratio 25.0 H Glucose 184 H POC Glucose Estimat Average Glucose Pending Hemoglobin A1c Pending Calcium 9.1 Magnesium 2.1 Total Bilirubin AST ALT Alkaline Phosphatase Total Creatine Kinase CK-MB (CK-2) CK/CKMB % Calc Troponin I C-Reactive Protein Total Protein Albumin Globulin Albumin/Globulin Ratio Lipase Urine Color Urine Appearance Urine pH Ur Specific Carson Urine Protein Urine Glucose (UA) Urine Ketones Urine Blood Urine Nitrite Urine Bilirubin Urine Urobilinogen Ur Leukocyte Esterase Urine WBC (Auto) Urine RBC (Auto) U Hyaline Cast (Auto) U Epithel Cells (Auto) Urine Bacteria (Auto) 05/18/19 05/18/19 05:17 07:31 WBC RBC Hgb Hct MCV MCH MCHC RDW Std Deviation RDW Coeff of Vicky Plt Count MPV Immature Gran % (Auto) Neut % (Auto) Lymph % (Auto) Juncos % (Auto) Eos % (Auto) Baso % (Auto) Immature Gran # (Auto) Neut # (Auto) Lymph # (Auto) Juncos # (Auto) Eos # (Auto) Baso # (Auto) ESR PT INR APTT PTT Ratio D-Dimer Sodium Potassium Chloride Carbon Dioxide Anion Gap BUN Creatinine Est Cr Clr Drug Dosing Est GFR ( Amer) Est GFR (Non-Af Amer) BUN/Creatinine Ratio Glucose POC Glucose 145 H Estimat Average Glucose Hemoglobin A1c Calcium Magnesium Total Bilirubin AST ALT Alkaline Phosphatase Total Creatine Kinase CK-MB (CK-2) CK/CKMB % Calc Troponin I 0.020 C-Reactive Protein Total Protein Albumin Globulin Albumin/Globulin Ratio Lipase Urine Color Urine Appearance Urine pH Ur Specific Carson Urine Protein Urine Glucose (UA) Urine Ketones Urine Blood Urine Nitrite Urine Bilirubin Urine Urobilinogen Ur Leukocyte Esterase Urine WBC (Auto) Urine RBC (Auto) U Hyaline Cast (Auto) U Epithel Cells (Auto) Urine Bacteria (Auto) Diagnostic Findings As per Dr. Penaolza's note of 05/15/19: Cardiac catheterization report summary May 09, 2019: LVEDP 16 mm Hg (mildly elevated)LMCA is short and angiographically normalLCx is mildly diseased; large 1st OM has 60% stable, chronic appearing stenosis.LAD has a 40% mid stenosisRCA is angiographically normal (and dominant) Lexiscan nuclear stress test report May 08, 2019 Probable Infarction involving inferior segments. Probable Ischemia involving apical septal segments. GATED SPECT WALL MOTION DATA: 1. Gated wall motion showed global hypokinesis and inferior akinesis. 2. Left ventricular ejection fraction was calculated at 28% and felt to be of good reliability. 2D echo report summary May 08, 2019: The qualitative LV ejection fraction is 20-24% (severely reduced) which is a significant change from prior study. There is diffuse hypokinesis. The LV wall thickness is mildly increased (concentric). The right ventricle is inadequately visualized. Mild mitral regurgitation is present. Mild tricuspid regurgitation is present. Medications Administered Current Inpatient Medications Albuterol (Ventolin Hfa) 2 puffs INH Q4 PRN PRN Reason: Shortness Of Breath Or Wheezing Stop: 06/16/19 23:02 Allopurinol (Zyloprim) 300 mg PO QPM ERASTO Stop: 06/17/19 20:59 Aspirin (Ecotrin Ectab) 81 mg PO QAM ERASTO Stop: 06/17/19 08:59 Last Admin: 05/18/19 08:54 Dose: 81 mg Documented by: Atorvastatin Calcium (Lipitor) 40 mg PO QPM ERASTO Stop: 06/17/19 20:59 Desipramine HCl (Norpramin) 25 mg PO QPM ERASTO Stop: 06/17/19 20:59 Dextrose (Dextrose 50%) 25 - 50 ml IV UD PRN; Protocol PRN Reason: Hypoglycemia Protocol Stop: 06/16/19 23:14 Fexofenadine HCl (Adilia) 180 mg PO DAILY PRN PRN Reason: Allergy Symptoms Stop: 06/16/19 22:40 Glucagon (Glucagen) 1 mg SQ UD PRN; Protocol PRN Reason: Hypoglycemia Protocol Stop: 06/16/19 23:14 Glucose (Glucose 40%) 15 - 30 gm PO UD PRN; Protocol PRN Reason: Hypoglycemia Protocol Stop: 06/16/19 23:14 Glucose (Dex4 Glucose) 4 - 8 tabs PO UD PRN; Protocol PRN Reason: Hypoglycemia Protocol Stop: 06/16/19 23:14 Insulin Aspart (Novolog Flexpen) 0 units SC ACHS ERASTO Stop: 06/17/19 07:29 Last Admin: 05/18/19 08:54 Dose: Not Given Documented by: Magnesium Oxide (Mag-Ox) 400 mg PO QPM [facility] Stop: 06/17/19 20:59 Metoprolol Succinate (Toprol Xl) 25 mg PO DAILY ERASTO Stop: 06/17/19 08:59 Last Admin: 05/18/19 08:54 Dose: 25 mg Documented by: Miscellaneous (Order Awaiting Action) 1 ea N/A QS [facility] Stop: 06/17/19 07:59 Last Admin: 05/18/19 08:52 Dose: Not Given Documented by: Miscellaneous (Carbohydrates For Hypoglycemia) 15 - 30 gm PO UD PRN PRN Reason: Hypoglycemia Treatment Stop: 06/16/19 23:14 Morphine Sulfate (Morphine Sulfate) 2 mg IV Q30M PRN PRN Reason: Chest Pain Stop: 05/31/19 22:40 Last Admin: 05/18/19 07:49 Dose: 2 mg Documented by: Mycophenolate Mofetil (Cellcept) 500 mg PO QPM [facility] Stop: 06/17/19 20:59 Nitroglycerin (Nitrostat) 0.4 mg SL UD PRN PRN Reason: Chest Pain Stop: 06/16/19 22:40 Ondansetron HCl (Zofran) 4 mg IV Q6H PRN PRN Reason: Nausea Stop: 06/16/19 22:40 Last Admin: 05/18/19 07:50 Dose: 4 mg Documented by: Pantoprazole Sodium (Protonix) 40 mg PO BID ERASTO Stop: 06/16/19 23:14 Last Admin: 05/18/19 08:54 Dose: 40 mg Documented by: Polyethylene Glycol (Miralax Powder Packet) 17 gm PO DAILY PRN PRN Reason: Constipation Stop: 06/16/19 22:40 Sirolimus (Sirolimus) 1 mg PO QPM [facility]STO Stop: 06/17/19 20:59 Trazodone HCl (Desyrel) 100 mg PO HS ERASTO Stop: 06/17/19 20:59
[2019-05-18] MEDS ORDERED: LIDOCAINE 5% 1 PATCH TD SCH (12:00)
[2019-05-18] MEDS ORDERED: ACETAMINOPHEN 325 MG TAB PO PRN (12:01)
[2019-05-18] MEDS ORDERED: HYDROmorphone INJ 0.5 MG/0.5 ML SYR IV PRN (12:02)
[2019-05-18] MEDS ORDERED: OXYCODONE HCL IR 5 MG TAB (IMMEDIATE RELEASE) PO PRN (12:02)
[2019-05-18] MEDS ORDERED: SIROLIMUS 0.5 MG TABLET PO SCH (21:00)
[2019-05-18] MEDS ORDERED: TRAZODONE HCL 100 MG TAB PO SCH (21:00)
[2019-05-18] MEDS ORDERED: MAGNESIUM OXIDE 400 MG TAB PO SCH (21:00)
[2019-05-18] MEDS ORDERED: ALLOPURINOL 300 MG TAB PO SCH (21:00)
[2019-05-18] MEDS ORDERED: DESIPRAMINE HCL 25 MG TAB PO SCH (21:00)
[2019-05-18] MEDS ORDERED: ATORVASTATIN 40 MG TAB PO SCH (21:00)
[2019-05-18] MEDS ORDERED: MYCOPHENOLATE MOFETIL 250 MG CAP PO SCH (21:00)
[2019-05-19 06:04] LABS: Estimated Average Glucose 163 mg/dl; Hemoglobin A1C 7.3 % (4.5-5.6)
--- NOTE | 2019-05-19 08:19 | Pain Management Consultation ---
Date of Consultation May 19, 2019 Assessment & Plan (1) Costochondritis: pt was d/c'd prior to being seen History of Present Illness Attending Physician: Humberto Quintero MD Allergies Allergy/AdvReac Type Severity Reaction Status Date / Time ketamine Allergy Intermediate hallucinati Verified 05/07/19 06:04 ons midazolam Allergy Intermediate headaches/ Verified 05/07/19 06:04 "hangover" diphenhydramine AdvReac Intermediate restless Verified 05/07/19 06:04 prochlorperazine AdvReac Intermediate ANXIETY Verified 05/07/19 06:04 Home Medications Home Medications Medication Instructions Recorded Confirmed Type allopurinol 300 mg PO QPM #0 tab 02/27/12 05/17/19 History trazodone 100 mg PO HS #0 tab 02/27/12 05/17/19 History albuterol sulfate 2 puff INHALATION Q4 PRN #0 01/01/17 05/17/19 History sirolimus 1 mg PO QPM #0 01/01/17 05/17/19 History atorvastatin 40 mg PO QPM #0 tab 01/09/18 05/17/19 History desipramine 25 mg PO QPM #0 01/09/18 05/17/19 History esomeprazole magnesium [Nexium] 40 mg PO BID #0 cap 01/09/18 05/17/19 History fexofenadine 180 mg PO DAILY PRN #0 tab 01/09/18 05/17/19 History mometasone 1 spray INTRANASAL DAILY PRN #0 01/09/18 05/17/19 History mycophenolate mofetil 500 mg PO QPM #0 tab 01/09/18 05/17/19 History pseudoephedrine-guaifenesin 1 tab PO Q12H PRN #0 tab 01/09/18 05/17/19 History aspirin [Ecotrin Low Strength] 81 mg PO QAM #0 tab 05/07/19 05/17/19 Rx magnesium salicylate 580 mg PO QPM 05/07/19 05/17/19 History nitroglycerin [Nitrostat] 0.4 mg SUBLINGUAL UD PRN #1 tab 05/07/19 05/17/19 Rx furosemide 80 mg PO DAILY 05/17/19 05/17/19 History metoprolol succinate 25 mg PO DAILY 05/17/19 05/17/19 History acetaminophen 325 mg PO Q6H PRN 5 Days #20 cap 05/18/19 Rx lidocaine 1 patch TRANSDERMAL QAM 15 Days 05/18/19 Rx #15 ea Patient History Medical History Arm pain (Chronic) HAS DORSAL COLUMN STIMULATOR FOR PAIN CONTROL 2007 Arthritis (Chronic) Oquendo's esophagus (Chronic) Chronic hepatitis C with cirrhosis (Chronic) Femur fracture, left (Chronic) REPAIRED GERD (gastroesophageal reflux disease) (Chronic) Gout (Chronic) HTN (hypertension) (Chronic) Hyperlipemia (Chronic) Surgical History H/O rhinoplasty (Chronic) History of biliary duct stent placement (Chronic) BILE DUCT STENTS INSERTED MULTIPLE TIMES History of bowel resection (Chronic) History of liver transplant (Chronic) 1993 Rachel, 2004 [facility] History of nasal septoplasty (Chronic) X 2 History of open reduction and internal fixation (ORIF) procedure (Chronic) left femur Hx of tonsillectomy (Chronic) Hx of tooth extraction (Chronic) S/P cardiac catheterization Family History Other Diabetes Heart disease Social History Preferred Language: Taiwanese Communication Ability: Effective Soccer Player Required: No Beliefs That Will Affect Care: None Current Living Situation: Spouse Feels Safe at Home: Yes Safety Concerns: Feels Safe At This Time Smoking Status: Never smoker Second Hand Exposure: No ; Hx Alcohol Use: No Hx Substance Use: No
== END 2019-05-18 15:25 | disposition home or self-care (01) | DRG 206 ==
LOC: ED 17:36 → 2S 21:31